=== PATIENT | female | born 1995 | race African-American/Black ===

== ENCOUNTER 2019-03-16 20:27 | Emergency (ER) | payer OTHER ==
[2019-03-16 20:45] VITALS: BP 143/80
--- NOTE | 2019-03-16 20:54 | ED Physician Documentation ---
History of Present Illness - Stated complaint Stated Complaint: R SHOULDER PX - Chief complaint Chief Complaint: Ext Problem - History obtained from History obtained from: Patient - History of Present Illness Timing: Yesterday Pain level now: 5 Improved by: rest Worsened by: movement at wrist - Additonal information Additional information: yesterday morning, patient had gradual onset paresthesias ("pins and needles", per patient) in all five right fingers. Since then, this has progressed to a painful sensation and spread up arm to elbow and now it is all the way from fingertips to right shoulder. Denies injury, denies h/o similar symptoms, denies neck pain. Patient is right-hand dominant. Took 600mg ibuprofen without relief Review of Systems Constitutional: denies: Fever Skin: denies: Rash Musculoskeletal: reports: Extremity pain, Joint pain. denies: Neck pain, Back pain, Extremity swelling, Joint swelling Neurologic: denies: Focal weakness, Numbness PD PAST MEDICAL HISTORY - Past Medical History Cardiovascular: Hypertension - Past Surgical History General: Hiatal hernia repair - Present Medications Home Medications: Ambulatory Orders Medication Instructions Recorded Confirmed Hydrocodone/Acetaminophen 1 - 2 each PO Q6H PRN #14 tablet 03/16/19 [Hydrocodon-Acetaminophen 5-325] - Allergies Allergies/Adverse Reactions: Allergies Allergy/AdvReac Type Severity Reaction Status Date / Time No Known Drug Allergies Allergy Verified 03/16/19 20:33 - Social History Does the pt smoke?: No Smoking Status: Never smoker PD ED PE NORMAL - Vitals Vital signs reviewed: Yes - General General: Alert and oriented X 3, No acute distress, Well developed/nourished - Neck Neck: Supple, no meningeal sign, No bony TTP - Derm Derm: Normal color, Warm and dry, No rash - Extremities Extremities: No deformity, No edema - Neuro Neuro: No motor deficit, No sensory deficit PD ED PE EXPANDED - Extremities Extremities: Sensory intact, Vascular intact, Tendon intact, Other (brisk capillary refill right hand and fingers. normal tactile temperature right hand/fingers. LTS intact RUE to fingertips. FROM all joints RUE although patient says pain is midly exacerbated with right wrist ROM. She has point tenderness right shoulder at AC joint) Results - Vitals Vitals: Vital Signs - 24 hr 03/16/19 20:29 Temperature 36.8 C Heart Rate 94 Respiratory 18 Rate Blood Pressure 143/80 H O2 Saturation 100 Oxygen O2 Source Room air PD MEDICAL DECISION MAKING - ED course Complexity details: considered differential, d/w patient ED course: emergent testing not indicated at this time. Has some elements s/o cervical radiculopathy and others s/o bursitis. Will employ conservative measures at this time (rest, sling, analgesia) and have patient return to ED if worse and follow up with PMD next few days. Departure - Departure Disposition: Home, Self Care Clinical Impression: Pain of upper extremity Qualifiers: Laterality: right Qualified Code(s): M79.601 - Pain in right arm Condition: Good Instructions: ED Bursitis, ED Cervical Radiculopathy, ED Sling Follow-Up: Adriana Martin ARNP [Primary Care Provider] - Within 1 week Prescriptions: Hydrocodone/Acetaminophen [Hydrocodon-Acetaminophen 5-325] 1 - 2 each PO Q6H PRN #14 tablet PRN Reason: pain Forms: Activity restrictions Discharge Date/Time: 03/16/19 21:47
[2019-03-16] MEDS ORDERED: HYDROcod/ACET 5/325 Prepack 4 PO STA (21:22)
== END 2019-03-16 21:47 | disposition home or self-care (01) ==
LOC: ED 20:27
DX: M79.601 Pain in right arm (principal); I10 Essential (primary) hypertension
CPT/HCPCS: 99282; 99284

== ENCOUNTER 2020-10-06 16:58 | Day surgery (SDC) | payer OTHER ==
--- OUTSIDE RECORDS SUMMARY | 2020-10-06 17:11 | EXTERNAL MEDICAL SUMMARY RPT | Continuity of Care Document ---
:1995 Demographics Phone Unavailable Preferred Language Unknown Marital Status Unknown Shinto Affiliation Unknown Race Unknown Ethnic Group Unknown Author Organization [place] Address [address] [phone] Phone Social History date description facility [phone]
[2020-10-06 17:31] LABS: BILIRUBIN,URINE NEGATIVE (NEGATIVE); GLUCOSE, URINE (UA) NEGATIVE (NEGATIVE); KETONES,URINE (UA) NEGATIVE (NEGATIVE); LEUKOCYTE ESTERASE, URINE NEGATIVE (NEGATIVE); NITRITE,URINE NEGATIVE (NEGATIVE); OCCULT BLOOD,URINE TRACE-INTA (NEGATIVE); PH,URINE 7.5 PH (5.0-7.5); PROTEIN,URINE NEGATIVE (NEGATIVE); UROBILINOGEN,URINE 0.2 (NORMAL) E.U./dL (NORMAL)
[2020-10-06 17:35] LABS: CLARITY,URINE CLEAR (CLEAR); HCG UR QUAL NEGATIVE
[2020-10-06 17:38] LABS: BASOPHILS % (AUTO) 0.2 %; EOSINOPHILS # (AUTO) 0.1 10^3/uL (0.0-0.7); EOSINOPHILS % (AUTO) 0.9 %; HCT - HEMATOCRIT 38.7 % (37.0-47.0); HGB - HEMOGLOBIN 12.6 g/dL (12.0-16.0); LYMPHOCYTES # (AUTO) 2.1 10^3/uL (1.5-3.5); MEAN CORPUSCULAR HEMOGLOBIN 24.4 pg (27.0-31.0); MEAN CORPUSCULAR HGB CONC 32.6 g/dL (32.0-36.0); MEAN CORPUSCULAR VOLUME 74.9 fL (81.0-99.0); MEAN PLATELET VOLUME 8.4 fL (7.9-10.8); MONOCYTES % (AUTO) 8.4 %; NEUTROPHILS % (AUTO) 73.3 %; PLT - PLATELET COUNT 261 10^3/uL (130-450); RED BLOOD COUNT 5.17 10^6/uL (4.20-5.40); RED CELL DISTRIBUTION WIDTH 16.6 % (12.0-15.0); WHITE BLOOD COUNT 12.3 x10^3/uL (4.8-10.8)
[2020-10-06 17:48] LABS: ALBUMIN 4.5 g/dL (3.2-5.5); ALBUMIN/GLOBULIN RATIO 1.2 (1.0-2.2); BILIRUBIN,TOTAL 0.4 mg/dL (0.2-1.0); CALCIUM 9.8 mg/dL (8.5-10.3); CREATININE 0.8 mg/dL (0.4-1.0); POTASSIUM 3.9 mmol/L (3.5-5.0); TOTAL PROTEIN 8.2 g/dL (6.7-8.2)
--- NOTE | 2020-10-06 18:32 | ED Physician Documentation ---
History of Present Illness - Stated complaint Stated Complaint: ABD PX - Chief complaint Chief Complaint: Abd Pain - Additonal information Additional information: 24-year-old female presents emergency department for evaluation of acute right lower quadrant pain that began about 6 hours prior to arrival. Sudden onset nonradiating. No nausea vomiting or fevers. Patient reports that she has never had pain like this. Last menstrual period 09/21/2020. She does report a history of ovarian cyst but never having pain with them. No pertinent past surgical history. No pertinent past medical history. Takes no prescribed medications. Review of Systems Constitutional: reports: Reviewed and negative Ears: reports: Reviewed and negative Nose: reports: Reviewed and negative Throat: reports: Reviewed and negative Cardiac: reports: Reviewed and negative Respiratory: reports: Reviewed and negative GI: reports: Abdominal Pain : reports: Reviewed and negative Skin: reports: Reviewed and negative Musculoskeletal: reports: Reviewed and negative Neurologic: reports: Reviewed and negative PD PAST MEDICAL HISTORY - Past Medical History Cardiovascular: Hypertension TEST CONSULTANT: Ovarian cysts, Fibroids - Past Surgical History Past Surgical History: Yes General: Hiatal hernia repair - Present Medications Home Medications: Ambulatory Orders Medication Instructions Recorded Confirmed No Known Home Medications 02/18/20 10/06/20 - Allergies Allergies/Adverse Reactions: Allergies Allergy/AdvReac Type Severity Reaction Status Date / Time No Known Drug Allergies Allergy Verified 10/06/20 17:11 - Social History Does the pt smoke?: No Smoking Status: Never smoker Does the pt drink ETOH?: Yes Does the pt have substance abuse?: No - Immunizations Immunizations are current?: Yes PD ED PE EXPANDED - General General: Alert, No acute distress, Well developed/nourished - Neck Neck: Supple w/out meningeal sx. No: Adenopathy - Cardiac Cardiac: Regular Rate, Radial strong equal, Pedal strong equal, Cap refill < 2 sec - Respiratory Respiratory: Clear to ausultation isaiah. No: Distress, Labored - Abdomen Abdomen: Normal Bowel sounds, Tender to palpation, Rebound, Guarding (Focal tenderness right lower quadrant with rebound. equivocal mcburneys) - Derm Derm: Normal color, Warm and dry Results - Vitals Vitals: Vital Signs - 24 hr 10/06/20 10/06/20 10/06/20 17:11 19:16 19:27 Temperature 36.5 C 36.5 C Heart Rate 100 91 Respiratory 16 16 16 Rate Blood Pressure 135/82 H 131/80 H O2 Saturation 100 99 Oxygen O2 Source Room air - Labs Labs: Laboratory Tests 10/06/20 10/06/20 10/06/20 17:24 17:28 17:28 WBC 12.3 H RBC 5.17 Hgb 12.6 Hct 38.7 MCV 74.9 L MCH 24.4 L MCHC 32.6 RDW 16.6 H Plt Count 261 MPV 8.4 Neut # (Auto) 9.0 H Lymph # (Auto) 2.1 [place] # (Auto) 1.0 Eos # (Auto) 0.1 Baso # (Auto) 0.0 Absolute Nucleated RBC 0.00 Nucleated RBC % 0.0 Sodium 137 Potassium 3.9 Chloride 99 L Carbon Dioxide 28 Anion Gap 10.0 BUN 16 Creatinine 0.8 Estimated GFR (MDRD) 107 Glucose 93 Calcium 9.8 Total Bilirubin 0.4 AST 22 ALT 20 Alkaline Phosphatase 73 Total Protein 8.2 Albumin 4.5 Globulin 3.7 Albumin/Globulin Ratio 1.2 Lipase 22 Urine Color YELLOW Urine Clarity CLEAR Urine pH 7.5 Ur Specific [place] 1.015 Urine Protein NEGATIVE Urine Glucose (UA) NEGATIVE Urine Ketones NEGATIVE Urine Occult Blood TRACE-INTA Urine Nitrite NEGATIVE Urine Bilirubin NEGATIVE Urine Urobilinogen 0.2 (NORMAL) Ur Leukocyte Esterase NEGATIVE Ur Microscopic Review NOT INDICATED Urine Culture Comments NOT INDICATED Urine HCG, Qual NEGATIVE - Rads (name of study) ct ABD Radiology: Discussed with rads (Cute appendicitis with inflammatory changes. No abscess free air or fluid however a small microperforation is not ruled out.) PD MEDICAL DECISION MAKING - ED course Complexity details: reviewed results, re-evaluated patient, d/w patient ED course: 24-year-old female presents emergency department with acute right lower quadrant abdominal pain. Began about 6 hours prior to arrival. She had a positive McBurney's on exam. Screening labs show mild leukocytosis. CT of the abdomen does reveal acute appendicitis with some surrounding inflammatory changes though no abscess formation. Small microperforation is not ruled out. [address] results with Dr. Heide Hare on-call surgeon. Unasyn has been ordered as well as rapid Covid. She plans to take the patient to surgery this evening. Further care to be dictated by the surgical team. Patient made aware of plan and findings Departure - Departure Disposition: ED Transfer to [facility] Clinical Impression: Appendicitis Qualifiers: Appendicitis type: acute appendicitis Acute appendicitis type: with localized peritonitis Appendicitis gangrene presence: without gangrene Appendicitis perforation presence: unspecified whether perforation present Appendicitis abscess presence: without abscess Qualified Code(s): K35.30 - Acute appendicitis with localized peritonitis, without perforation or gangrene
[2020-10-06] MEDS ORDERED: IOPAMIDOL-300 100 ML VIAL ONE (18:43)
[2020-10-06] MEDS ORDERED: diphenhydrAMINE INJ 50 MG/ML VIAL IVP STA (18:55)
--- NOTE | 2020-10-06 19:45 | CT Report ---
PROCEDURE: Abdomen/Pelvis W INDICATIONS: RLQ abd pain CONTRAST: IV CONTRAST: Isovue 300 ml: 100 PO CONTRAST: *NO PO CONTRAST TECHNIQUE: After the administration of intravenous contrast, 5 mm thick sections acquired from the diaphragms to the symphysis. 5 mm thick coronal and sagittal reformats were acquired. For radiation dose reducti on, the following was used: automated exposure control, adjustment of mA and/or kV according to denise ent size. COMPARISON: None. FINDINGS: Image quality: Excellent. ABDOMEN: Lung bases: There is mild dependent atelectasis. Heart size is normal. Solid organs: Evaluation of the liver demonstrates no focal hepatic lesions. Gallbladder appears wit hin normal limits without calcified gallstones. Biliary system is non dilated. The spleen is normal in size. Pancreas enhances normally without peripancreatic fat stranding or fluid collections. No ad renal nodules. Kidneys demonstrate no hydronephrosis. Peritoneum and bowel: The appendix is markedly distended, measuring up to 1.5 cm in diameter with as sociated wall thickening and enhancement and periappendiceal fat stranding. An appendicolith is demon strated in the distal appendiceal lumen. Findings are consistent with acute appendicitis. There is ex tensive associated pericecal inflammatory fat stranding with a small amount of free fluid in the righ t paracolic gutter. No free air or periappendiceal abscess. There is mild enhancement of adjacent loo ps of small bowel in the right lower quadrant. Remaining loops of small and large bowel demonstrate n ormal wall thickness and caliber. There is colonic diverticulosis without acute diverticulitis. Nodes and vessels: There are mildly enlarged mesenteric lymph nodes along the cecum measuring up to 1 cm which are likely reactive. Aorta and inferior vena cava are normal in size. Miscellaneous: No ventral hernias. PELVIS: Genitourinary: Bladder wall thickness is normal. The ovaries are enlarged in appearance bilaterally measuring up to 5.2 cm on the right and approximately 4.4 cm on the left. A peripherally enhancing cy st is demonstrated within the left ovary likely representing a corpus luteal cyst. There is a small e xophytic left fibroid along the uterine fundus. Miscellaneous: No inguinal hernias or adenopathy. Bones: No suspicious bony lesions. No vertebral body compression fractures. IMPRESSION: 1. Findings consistent with acute appendicitis. Extensive inflammatory changes in the right lower franca drant is consistent with an associated peritonitis. A small perforation cannot be excluded but no abs cess collection or free air is visualized. Findings discussed with Gayle Conroy on 10/06/2020 at 7:35 PM. 2. Nonspecific bilateral enlargement of the ovaries. Further evaluation may be obtained with pelvic u ltrasound if clinically indicated. 3. Colonic diverticulosis without acute diverticulitis. Reviewed by: Franklin Merrill MD on 10/06/2020 7:43 PM PDT Approved by: Franklin Merrill MD on 10/06/2020 7:43 PM PDT Station ID: [id number]
[2020-10-06] MEDS ORDERED: AMPICILLIN/SULBACTAM 3 GM in SODIUM CHLORIDE 0.9% MINIBAG 100 ML IV STA (19:46)
[2020-10-06] MEDS ORDERED: IOPAMIDOL-300 100 ML VIAL IVP ONE (19:48)
--- OUTSIDE RECORDS SUMMARY | 2020-10-06 20:39 | EXTERNAL MEDICAL SUMMARY RPT | Continuity of Care Document ---
:1995 Demographics Phone Unavailable Preferred Language Unknown Marital Status Unknown Lutheran Affiliation Unknown Race Unknown Ethnic Group Unknown Author Organization [place] Address [address] [place] [address] Phone Social History date description facility [phone]
[2020-10-06] MEDS ORDERED: LIDOCAINE 2%-EPI 1:100000 20 ML MDV ONE (20:40)
[2020-10-06] MEDS ORDERED: BUPIVACAINE 0.5% PF 30 ML VIAL ONE (20:40)
[2020-10-06] MEDS ORDERED: LIDOCAINE 2%-EPI 1:100000 20 ML MDV SUBQ ONE ×2 (20:42→22:00)
[2020-10-06] MEDS ORDERED: BUPIVACAINE 0.5% PF 30 ML VIAL INFIL ONE ×2 (20:43→22:00)
--- NOTE | 2020-10-06 20:43 | HISTORY & PHYSICAL EXAMINATION ---
HPI - Admitted From Admitted from: ED - History Obtained From History obtained from: Patient Exam limitations: No limitations - History of Present Illness Severity at the worst: reports: Moderate Pain Quality: reports: Aching, Cramping Context-Pain started w/: reports: Rest Timing: reports: Gradual onset Duration: reports: Hours: (6) HPI Comment/Other: 24-year-old female presents emergency department for evaluation of acute right lower quadrant pain that began about 6 hours prior to arrival. Sudden onset nonradiating. No nausea vomiting or fevers. Patient reports that she has never had pain like this. Last menstrual period 09/21/2020. She does report a history of ovarian cyst but never having pain with them. No pertinent past surgical history. No pertinent past medical history. Takes no prescribed medications. PMH/PSH - Past Medical History Cardiovascular: positive: Hypertension PAINTING DEPARTMENT SUPERVISOR: positive: Ovarian cysts, Fibroids - Past Surgical History General: positive: Hiatal hernia repair Social & Family Hx - Social History Does the pt smoke?: No Smoking Status: Never smoker Does the pt drink ETOH?: Yes Does the pt have substance abuse?: No Meds/Allgy - Home Medications Home Medications: Ambulatory Orders Medication Instructions Recorded Confirmed No Known Home Medications 02/18/20 10/06/20 - Allergies Allergies/Adverse Reactions: Allergies Allergy/AdvReac Type Severity Reaction Status Date / Time No Known Drug Allergies Allergy Verified 10/06/20 17:11 Review of Systems - Gastrointestinal Gastrointestinal: reports: Abdominal pain, Constipation - All Other Systems All Other Systems: reports: Reviewed and negative Exam - Vital Signs Vital Signs: Vital Signs x48h Temp Pulse Resp BP Pulse Ox 10/06/20 19:27 16 10/06/20 19:16 36.5 C 91 16 131/80 H 99 10/06/20 17:11 36.5 C 100 16 135/82 H 100 - Physical Exam General Appearance: positive: No acute distress, Alert Eyes Bilateral: positive: Normal inspection, PERRL, EOMI ENT: positive: ENT inspection nml, Pharynx nml, No signs of dehydration Neck: positive: Nml inspection, Thyroid nml, No JVD Respiratory: positive: Chest non-tender, No respiratory distress, Breath sounds nml Cardiovascular: positive: Regular rate & rhythm Peripheral Pulses: positive: 1+ Abdomen: positive: Nml bowel sounds, Tenderness, Guarding, Rebound Back: negative: CVA tenderness (R), CVA tenderness (L) Results - Lab Results Fish Bones: 10/06/20 17:28 10/06/20 17:28 Other Lab Results: Lab Results x24hrs 10/06/20 10/06/20 10/06/20 Range/Units 17:28 17:28 17:24 WBC 12.3 H (4.8-10.8) x10^3/uL RBC 5.17 (4.20-5.40) 10^6/uL Hgb 12.6 (12.0-16.0) g/dL Hct 38.7 (37.0-47.0) % MCV 74.9 L (81.0-99.0) fL MCH 24.4 L (27.0-31.0) pg MCHC 32.6 (32.0-36.0) g/dL RDW 16.6 H (12.0-15.0) % Plt Count 261 (130-450) 10^3/uL MPV 8.4 (7.9-10.8) fL Neut # (Auto) 9.0 H (1.5-6.6) 10^3/uL Lymph # (Auto) 2.1 (1.5-3.5) 10^3/uL [place] # (Auto) 1.0 (0.0-1.0) 10^3/uL Eos # (Auto) 0.1 (0.0-0.7) 10^3/uL Baso # (Auto) 0.0 (0.0-0.1) 10^3/uL Absolute Nucleated RBC 0.00 x10^3/uL Nucleated RBC % 0.0 /100WBC Sodium 137 (135-145) mmol/L Potassium 3.9 (3.5-5.0) mmol/L Chloride 99 L (101-111) mmol/L Carbon Dioxide 28 (21-32) mmol/L Anion Gap 10.0 (6-13) BUN 16 (6-20) mg/dL Creatinine 0.8 (0.4-1.0) mg/dL Estimated GFR (MDRD) 107 (>89) Glucose 93 (70-100) mg/dL Calcium 9.8 (8.5-10.3) mg/dL Total Bilirubin 0.4 (0.2-1.0) mg/dL AST 22 (10-42) IU/L ALT 20 (10-60) IU/L Alkaline Phosphatase 73 (42-121) IU/L Total Protein 8.2 (6.7-8.2) g/dL Albumin 4.5 (3.2-5.5) g/dL Globulin 3.7 (2.1-4.2) g/dL Albumin/Globulin Ratio 1.2 (1.0-2.2) Lipase 22 (22-51) U/L Urine Color YELLOW Urine Clarity CLEAR (CLEAR) Urine pH 7.5 (5.0-7.5) PH Ur Specific [place] 1.015 (1.002-1.030) Urine Protein NEGATIVE (NEGATIVE) mg/dL Urine Glucose (UA) NEGATIVE (NEGATIVE) mg/dL Urine Ketones NEGATIVE (NEGATIVE) mg/dL Urine Occult Blood TRACE-INTA (NEGATIVE) Urine Nitrite NEGATIVE (NEGATIVE) Urine Bilirubin NEGATIVE (NEGATIVE) Urine Urobilinogen 0.2 (NORMAL) (NORMAL) E.U./dL Ur Leukocyte Esterase NEGATIVE (NEGATIVE) Ur Microscopic Review NOT INDICATED Urine Culture Comments NOT INDICATED Urine HCG, Qual NEGATIVE - Diagnostic Imaging Results Diagnostic Imaging Results: positive: Prelim report reviewed, Final report reviewed Diagnostic Imaging Results Comments: Consistent with acute appendicitis - EKG Results EKG Interpreted Independently: No Impression/Plan - Problem List Problem List: We have discussed the risks and benefits of laparoscopy with appendectomy and the patient has expressed a desire to proceed.
[2020-10-06 20:51] LABS: B. PARAPERTUSSIS- RESP PCR PAN NOT DETECTED; B. PERTUSSIS- RESP PCR PANEL NOT DETECTED; C. PNEUMONIAE- RESP PCR PANEL NOT DETECTED; CORONAVIRUS 229E-RESP PCR NOT DETECTED; CORONAVIRUS HKU1-RESP PCR NOT DETECTED; CORONAVIRUS NL63-RESP PCR NOT DETECTED; CORONAVIRUS OC43-RESP PCR NOT DETECTED; HUMAN METAPNEUMOVIRUS NOT DETECTED; INFLUENZA A- RESP PCR PANEL NOT DETECTED; INFLUENZA B - RESP PCR PANEL NOT DETECTED; M. PNEUMONIAE- RESP PCR PANEL NOT DETECTED; PARAINFLUENZA VIRUS 1 NOT DETECTED; PARAINFLUENZA VIRUS 2 NOT DETECTED; PARAINFLUENZA VIRUS 3 NOT DETECTED; PARAINFLUENZA VIRUS 4 NOT DETECTED; RHINOVIRUS/ENTEROVIRUS NOT DETECTED; RSV- RESP PCR PANEL NOT DETECTED; SARS-CoV-2 -RESP PCR PANEL NOT DETECTED
[2020-10-06] MEDS ORDERED: MIDAZOLAM 2 MG/2 ML VIAL ONE (20:58)
[2020-10-06] MEDS ORDERED: fentaNYL 100 MCG/2 ML VIAL ONE (20:58)
[2020-10-06] MEDS ORDERED: LIDOCAINE-MPF 2% 5 ML VIAL ONE (20:59)
[2020-10-06] MEDS ORDERED: SUCCINYLCHOLINE 200 MG/10 ML VIAL ONE (20:59)
[2020-10-06] MEDS ORDERED: KETOROLAC 30 MG/ML VIAL ONE (20:59)
[2020-10-06] MEDS ORDERED: ONDANSETRON 4 MG/2 ML VIAL ONE (20:59)
[2020-10-06] MEDS ORDERED: PROPOFOL 200 MG/20 ML VIAL IVP ONE (20:59)
[2020-10-06] MEDS ORDERED: DEXAMETHASONE 4 MG/ML VIAL ONE (20:59)
[2020-10-06] MEDS ORDERED: ROCURONIUM 50 MG/5 ML VIAL ONE (20:59)
[2020-10-06] MEDS ORDERED: fentaNYL 100 MCG/2 ML VIAL IVP PRN (21:04)
[2020-10-06] MEDS ORDERED: HYDROmorphone 0.5 MG/0.5 ML SYRINGE IVP PRN (21:04)
[2020-10-06] MEDS ORDERED: ONDANSETRON 4 MG/2 ML VIAL IVP PRN ×2 (21:04→22:15)
[2020-10-06] MEDS ORDERED: MORPHINE 2 MG/ML CARPUJECT IVP PRN (21:04)
[2020-10-06] MEDS ORDERED: NALOXONE 0.4 MG/ML VIAL IVP PRN (21:04)
[2020-10-06] MEDS ORDERED: METOCLOPRAMIDE 10 MG/2 ML VIAL IVP PRN (21:04)
[2020-10-06] MEDS ORDERED: ePHEDrine 50 MG/ML VIAL IVP PRN (21:04)
[2020-10-06] MEDS ORDERED: ATROPINE ABBOJECT 1 MG/10 ML SYRINGE IVP PRN (21:04)
--- NOTE | 2020-10-06 21:04 | ANESTHESIA ---
Pre-Anesthesia VS, & Labs - Diagnosis appendecitis - Procedure laparoscopic appendectomy Vital Signs: Temp Pulse Resp BP Pulse Ox 36.5 C 91 16 131/80 H 99 10/06/20 19:16 10/06/20 19:16 10/06/20 19:27 10/06/20 19:16 10/06/20 19:16 Height: 5 ft 2 in Weight (kg): 81.7 kg Body Mass Index: 32.9 BMI Classification: Obese - NPO Other (1600 donuts and chips) - Is Patient ?: No - Lab Results Current Lab Results: Laboratory Tests 10/06/20 17:28: Sodium 137, Potassium 3.9, Chloride 99 L, Carbon Dioxide 28, Anion Gap 10.0, BUN 16, Creatinine 0.8, Estimated GFR (MDRD) 107, Glucose 93, Calcium 9.8, Total Bilirubin 0.4, AST 22, ALT 20, Alkaline Phosphatase 73, Total Protein 8.2, Albumin 4.5, Globulin 3.7, Albumin/Globulin Ratio 1.2, Lipase 22 10/06/20 17:28: WBC 12.3 H, RBC 5.17, Hgb 12.6, Hct 38.7, MCV 74.9 L, MCH 24.4 L , MCHC 32.6, RDW 16.6 H, Plt Count 261, MPV 8.4, Neut # (Auto) 9.0 H, Lymph # (Auto) 2.1, [place] # (Auto) 1.0, Eos # (Auto) 0.1, Baso # (Auto) 0.0, Absolute Nucleated RBC 0.00, Nucleated RBC % 0.0 Lab results reviewed: Yes Fish Bones: 10/06/20 17:28 10/06/20 17:28 Home Medications and Allergies No Known Home Medications 02/18/20 Allergies/Adverse Reactions: Allergies Allergy/AdvReac Type Severity Reaction Status Date / Time No Known Drug Allergies Allergy Verified 10/06/20 17:11 Anes History & Medical History - Anesthetic History Anesthesia Complications: reports: No previous complications Family history of Anesthesia Complications: Denies Family history of Malignant Hyperthermia: Denies - Medical History Cardiovascular: reports: Hypertension Smoking Status: Never smoker - Surgical History General: reports: Hiatal hernia repair Exam General: Alert, Oriented x3, Cooperative, No acute distress Dental: WNL Mouth Openin Fingerbreadth Neck Mobility: Normal Mallampati classification: I Respiratory: Lungs clear, Normal breath sounds, No respiratory distress, No accessory muscle use Cardiovascular: Regular rate, Normal S1, Normal S2, No murmurs Plan Anesthesia Type: General Consent for Procedure(s) Verified and Reviewed: Yes Code Status: Attempt Resuscitation ASA classification: 2-Mild systemic disease Is this case an emergency?: Yes
[2020-10-06] MEDS ORDERED: LACTATED RINGERS 1,000 ML IV SCH (22:00)
--- NOTE | 2020-10-06 22:13 | OPERATIVE REPORT ---
Operative Report - General Procedure Date: 10/06/20 Planned Procedure: Laparoscopy with appendectomy Pre-Op Diagnosis: Acute appendicitis Procedure Performed: Laparoscopy with appendectomy Post Op Diagnosis: Acute appendicitis without evidence of perforation - Procedure Note Primary Surgeon: Payam Anesthesia Provider: MACI Mast Anesthesia Technique: General ET tube Pathology: Appendix to pathology in formalin Estimated Blood Loss (mL): 10 Findings: 1.Acute appendicitis with right lower quadrant phlegmon. 2. Multiple ovarian cysts Complications: None apparent - Other Other Information/Narrative: After obtaining informed consent, the patient is brought to the operating room and placed in the supine position on the operating table. Following successful induction of general endotracheal anesthesia, appropriate padding of all bony prominences, and placement of appropriate monitors, the abdomen was prepped and draped in the standard surgical fashion. A timeout was held per scope protocol. All elements of the surgical safety checklist were followed before, during, and after the procedure. Following infiltration with local anesthetic to create a field block, an inc ision was created inferior to the umbilicus and carried down through the skin and subcutaneous tissue to reveal the fascia below. 2-0 Vicryl retention sutures were placed on either side of the midline and the abdomen was entered under direct vision using a 15 blade scalpel. A 10 mm blunt Goodson balloon trocar was placed in the abdominal cavity and it was insufflated to 15 mmHg pressure. The patient was placed in Trendelenburg position with the left side rotated toward the floor. The camera was placed in the abdominal cavity and we immediately visualized the cecum in the right lower quadrant. It was rotated medially to reveal a grossly abnormal thickened edematous appendix without obvious perforation. The appendix was grasped and elevated revealing its attachment to the cecum. A window was created in the mesoappendix at this location. A laparoscopic stapling device was used to ligate the appendix and liberated from its attachment to the cecum. An additional load of the device w ere used to divide its mesentery.The appendix was placed in an Endo Catch bag and removed via the umbilical port with a camera in the epigastric position. The camera was replaced in the operative site examined. It was irrigated with warm saline solution and aspirated free of all fluid and particulate matter. The table was flattened and the abdomen evaluated once again. The trochars were removed under direct vision and abdomen was desufflated. The umbilical incision was closed with interrupted Vicryl suture and Monocryl stitches were placed in the skin. All sponge, needles, and instrument counts were correct at the conclusion of the case. The patient was allowed to wake from anesthesia without difficulty and taken to the postanesthesia care unit in good condition.
[2020-10-06] MEDS ORDERED: ACETAMINOPHEN 325 MG TABLET PO PRN (22:15)
[2020-10-06] MEDS ORDERED: LACTATED RINGERS 1,000 ML IV ONE ×2 (22:32→23:22)
--- NOTE | 2020-10-06 22:36 | ANESTHESIA POST OP EVALUATION ---
Anesthesia Post Eval - Post Anesthesia Eval Vitals: Last Vital Signs Temp 36.5 C 10/06/20 19:16 Pulse 91 10/06/20 19:16 Resp 16 10/06/20 19:27 BP 131/80 H 10/06/20 19:16 Pulse Ox 99 10/06/20 19:16 CV Function Including HR & BP: Stable Pain Control: Satisfactory Nausea & Vomiting: Negative Mental Status: Baseline Respiratory Status: Airway Patent Hydration Status: Satisfactory Anesthesia Complications: None
[2020-10-07] MEDS: IBUPROFEN 600 MG TABLET PO PRN ×2 (00:33→07:37)
[2020-10-07] MEDS: oxyCODONE 5 MG TABLET PO PRN ×2 (01:00→07:37)
[2020-10-07] MEDS ORDERED: AMPICILLIN/SULBACTAM 3 GM in SODIUM CHLORIDE 0.9% MINIBAG 100 ML IV SCH ×2 (01:30→07:30)
[2020-10-07 07:56] VITALS: BP 124/63
== END 2020-10-07 09:40 | disposition home or self-care (01) ==
LOC: ED 16:58 → SDS 20:31 → MS3 23:08 → SDS 10-07 09:40
PROVIDERS: ATTEND Surgery
PROC: 0DTJ4ZZ Resection of Appendix, Percutaneous Endoscopic Approach (ICD-10-PCS; principal; 2020-10-06 20:30)
DX: K35.30 Acute appendicitis with localized peritonitis, without perforation or gangrene (principal); Z20.822 Contact with and (suspected) exposure to COVID-19
CPT/HCPCS: 0202U; 36415; 44970; 74177; 80053; 81003; 81025; 83690; 85025; 96365; 96375; 99284; 99285; A9270; J0330; J1200; J7120; Q9967; 81001; 87086

== ENCOUNTER 2020-10-20 20:53 | Inpatient (IN) | payer OTHER ==
--- OUTSIDE RECORDS SUMMARY | 2020-10-20 20:57 | EXTERNAL MEDICAL SUMMARY RPT | Continuity of Care Document ---
:1995 Demographics Phone Unavailable Preferred Language Unknown Marital Status Unknown Worship Affiliation Unknown Race Unknown Ethnic Group Unknown Author Organization [place] Address [address] [phone] Phone Social History date description facility [phone]
--- OUTSIDE RECORDS SUMMARY | 2020-10-20 20:59 | EXTERNAL MEDICAL SUMMARY RPT | Continuity of Care Document ---
:1995 Demographics Phone Unavailable Preferred Language Unknown Marital Status Unknown Hinduism Affiliation Unknown Race Unknown Ethnic Group Unknown Author Organization [place] Address [address] [phone] Phone Social History date description facility [phone]
[2020-10-20] MEDS ORDERED: SODIUM CHLORIDE 0.9% 1,000 ML IV STA (21:29)
--- NOTE | 2020-10-20 21:34 | ED Physician Documentation ---
PD HPI FEVER - Stated complaint Stated Complaint: POST OP FEVER - Chief complaint Chief Complaint: Abd Pain - History obtained from History obtained from: Patient - History of Present Illness Timing - onset: Today Timing details: Abrupt onset Pain level now: 6 Associated symptoms: Chills, Dyspnea, Abdominal pain. No: Sore throat, Dry cough, Productive cough, Hemoptysis, Chest pain, NVD, Urinary symptoms, Rash/skin lesion Recently seen: Surgery (appendectomy 10/06) - Additional information Additional information: patient underwent appendectomy 10/06. Her description of her post-operative course sounds unremarkable and includes a subsequent trip to [place]. Patient says that 2 days ago she developed pain at the midline incision site (she indicates that this was a site of a previous umbilical hernia surgery and thus same area was used for the appendectomy). She was seen in the office by the surgeon yesterday and strict bed rest was ordered and she was told to come to ED should she develop any further concerning signs/symptoms such as fever. Tonight she had shaking chills and took her temperature with result of 102.7; this was approximately 6 PM. 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 Review of Systems Constitutional: reports: Fever, Chills, Fatigue Eyes: reports: Reviewed and negative Ears: reports: Reviewed and negative Nose: reports: Reviewed and negative Throat: reports: Reviewed and negative Cardiac: reports: Reviewed and negative Respiratory: reports: Dyspnea (she says "I get winded sometimes" with ambulation). denies: Cough, Hemoptysis GI: reports: Abdominal Pain. denies: Abdominal Swelling, Nausea, Vomiting, Constipation, Diarrhea, Hematemesis, Bloody / black stool : denies: Dysuria, Frequency Skin: reports: Reviewed and negative Musculoskeletal: reports: Reviewed and negative Neurologic: reports: Reviewed and negative PD PAST MEDICAL HISTORY - Past Medical History Cardiovascular: Hypertension [employer] WORK[employer]: Ovarian cysts, Fibroids - Past Surgical History Past Surgical History: Yes General: Hiatal hernia repair - Present Medications Home Medications: Ambulatory Orders Medication Instructions Recorded Confirmed Ondansetron Odt [Zofran Odt] 4 mg TL Q6H PRN #10 tablet 10/06/20 oxyCODONE [Roxicodone] 5 mg PO Q4H PRN #14 tablet 10/06/20 Acetaminophen [8 Hour Pain Relief] 650 mg PO Q6HR PRN #60 tab 10/07/20 Ibuprofen [Motrin] 600 mg PO Q6H PRN #30 tab 10/07/20 - Allergies Allergies/Adverse Reactions: Allergies Allergy/AdvReac Type Severity Reaction Status Date / Time No Known Drug Allergies Allergy Verified 10/20/20 21:23 - Social History Does the pt smoke?: No Smoking Status: Never smoker Does the pt drink ETOH?: Yes Does the pt have substance abuse?: No - Immunizations Immunizations are current?: Yes PD ED PE NORMAL - Vitals Vital signs reviewed: Yes - General General: Alert and oriented X 3, No acute distress, Well developed/nourished - HEENT HEENT: Moist mucous membranes - Neck Neck: Supple, no meningeal sign - Cardiac Cardiac: No murmur - Respiratory Respiratory: No respiratory distress, Clear bilaterally - Abdomen Abdomen: Soft, Non distended, Other (midline (immediately inferior to umbilicus) incision with sutures in place, edges are approximated. there is no erythema or fluctuance. There is TTP RLQ and periumbilical) - Back Back: No CVA TTP - Derm Derm: Normal color, Warm and dry - Extremities Extremities: No edema - Neuro Neuro: Alert and oriented X 3 PD ED PE EXPANDED - Cardiac Cardiac: Tachy, Regular Rhythm Results - Vitals Vitals: Vital Signs - 24 hr 10/20/20 10/20/20 10/20/20 21:16 22:45 23:47 Temperature 38.2 C H 37.9 C Heart Rate 150 H 128 H 139 H Respiratory 14 17 23 Rate Blood Pressure 133/77 H 130/87 H 140/79 H O2 Saturation 100 100 99 10/21/20 10/21/20 10/21/20 00:29 00:30 00:41 Temperature 37.9 C Heart Rate 130 H 130 H 130 H Respiratory 16 16 Rate Blood Pressure 129/89 H 129/89 H 129/89 H O2 Saturation 98 100 100 Oxygen O2 Source Room air - Labs Labs: Laboratory Tests 10/20/20 10/20/20 10/20/20 21:32 21:32 21:39 WBC 19.0 H RBC 4.65 Hgb 10.9 L Hct 33.0 L MCV 71.0 L MCH 23.4 L MCHC 33.0 RDW 16.6 H Plt Count 345 MPV 8.3 Neut # (Auto) Not Reportable Lymph # (Auto) Not Reportable Lares # (Auto) Not Reportable Eos # (Auto) Not Reportable Baso # (Auto) Not Reportable Absolute Nucleated RBC Not Reportable Total Counted 100 Band Neuts % (Manual) 1 Abnorm Lymph % (Manual) 0 Nucleated RBC % Not Reportable Neutrophils # (Manual) 15.0 H Lymphocytes # (Manual) 2.3 Monocytes # (Manual) 1.7 H Eosinophils # (Manual) 0.0 Basophils # (Manual) 0.0 Differential Comment MANUAL DIFFERENTIAL WBC Morphology 1+ TOXIC GRANULATION Platelet Estimate NORMAL (130-450,000) Platelet Morphology NORMAL APPEARANCE RBC Morph Micro Appear 2+ MICROCYTOSIS Sodium Potassium Chloride Carbon Dioxide Anion Gap BUN Creatinine Estimated GFR (MDRD) Glucose Lactic Acid Calcium Total Bilirubin AST ALT Alkaline Phosphatase Total Protein Albumin Globulin Albumin/Globulin Ratio Urine Color YELLOW Urine Clarity CLEAR Urine pH 7.0 Ur Specific [place] <=1.005 Urine Protein NEGATIVE Urine Glucose (UA) NEGATIVE Urine Ketones NEGATIVE Urine Occult Blood LARGE H Urine Nitrite NEGATIVE Urine Bilirubin NEGATIVE Urine Urobilinogen 0.2 (NORMAL) Ur Leukocyte Esterase NEGATIVE Urine RBC 6-10 H Urine WBC 0-3 Ur Squamous Epith Cells MANY Squamous H Urine Bacteria Rare Urine Sperm PRESENT Urine Culture Comments NOT INDICATED Urine HCG, Qual NEGATIVE Nasal Adenovirus (PCR) Nasal B. parapertussis DNA (PCR) Nasal Coronavir 229E PCR Nasal Coronavir HKU1 PCR Nasal Coronavir NL63 PCR Nasal Coronavir OC43 PCR Nasal Enterovir/Rhinovir PCR Nasal Influenza B PCR Nasal Influenza A PCR Nasal Parainfluen 1 PCR Nasal Parainfluen 2 PCR Nasal Parainfluen 3 PCR Nasal Parainfluen 4 PCR Nasal RSV (PCR) Nasal B.pertussis DNA PCR Nasal C.pneumoniae (PCR) Steven Human Metapneumo PCR Nasal M.pneumoniae (PCR) Nasal SARS-CoV-2 (PCR) 10/20/20 10/20/20 10/20/20 21:39 21:45 23:25 WBC RBC Hgb Hct MCV MCH MCHC RDW Plt Count MPV Neut # (Auto) Lymph # (Auto) Lares # (Auto) Eos # (Auto) Baso # (Auto) Absolute Nucleated RBC Total Counted Band Neuts % (Manual) Abnorm Lymph % (Manual) Nucleated RBC % Neutrophils # (Manual) Lymphocytes # (Manual) Monocytes # (Manual) Eosinophils # (Manual) Basophils # (Manual) Differential Comment WBC Morphology Platelet Estimate Platelet Morphology RBC Morph Micro Appear Sodium 133 L Potassium 3.3 L Chloride 97 L Carbon Dioxide 25 Anion Gap 11.0 BUN 6 Creatinine 0.6 Estimated GFR (MDRD) 148 Glucose 119 H Lactic Acid 1.1 Calcium 8.9 Total Bilirubin 0.5 AST 36 ALT 42 Alkaline Phosphatase 131 H Total Protein 8.3 H Albumin 3.3 Globulin 5.0 H Albumin/Globulin Ratio 0.7 L Urine Color Urine Clarity Urine pH Ur Specific [place] Urine Protein Urine Glucose (UA) Urine Ketones Urine Occult Blood Urine Nitrite Urine Bilirubin Urine Urobilinogen Ur Leukocyte Esterase Urine RBC Urine WBC Ur Squamous Epith Cells Urine Bacteria Urine Sperm Urine Culture Comments Urine HCG, Qual Nasal Adenovirus (PCR) NOT DETECTED Nasal B. parapertussis DNA (PCR) NOT DETECTED Nasal Coronavir 229E PCR NOT DETECTED Nasal Coronavir HKU1 PCR NOT DETECTED Nasal Coronavir NL63 PCR NOT DETECTED Nasal Coronavir OC43 PCR NOT DETECTED Nasal Enterovir/Rhinovir PCR NOT DETECTED Nasal Influenza B PCR NOT DETECTED Nasal Influenza A PCR NOT DETECTED Nasal Parainfluen 1 PCR NOT DETECTED Nasal Parainfluen 2 PCR NOT DETECTED Nasal Parainfluen 3 PCR NOT DETECTED Nasal Parainfluen 4 PCR NOT DETECTED Nasal RSV (PCR) NOT DETECTED Nasal B.pertussis DNA PCR NOT DETECTED Nasal C.pneumoniae (PCR) NOT DETECTED Steven Human Metapneumo PCR NOT DETECTED Nasal M.pneumoniae (PCR) NOT DETECTED Nasal SARS-CoV-2 (PCR) NOT DETECTED - Rads (name of study) CT A/P with IV contrast Radiology: Prelim report reviewed, See rad report CT chest angio Radiology: Prelim report reviewed, See rad report PD MEDICAL DECISION MAKING - ED course Complexity details: reviewed old records, reviewed results, re-evaluated patient, considered differential, d/w patient ED course: On reevaluation after tests resulted and IV fluids, toradol, and morphine given, patient reports significant improvement. She has significant tachycardia and leukocytosis. Lactate is 1.1. CT A/P interpreted by radiologist as "1. enlarged ovaries appearing physiologic. left ovary is larger compared to previous 2. 2.5 x 2.2 cm medium density structure adjacent to the left uterine cornua and left ovary" that "was present previously, unchanged in size with a similar differential". Most concerning on CT is "3. Ill-defined low-density lesion within segment 7 of the liver. this liver lesion is new compared to previous and could reflect liver abscess given the history of appendicitis". I discussed these findings with Dr. Diaz, will admit to his service, recommends zosyn (this is given in ED). Departure - Departure Disposition: [facility] DC/Xfer Clinical Impression: Postoperative fever Sepsis Qualifiers: Sepsis type: sepsis due to unspecified organism Sepsis acute organ dysfunction status: without acute organ dysfunction Qualified Code(s): A41.9 - Sepsis, unspecified organism Condition: Stable Discharge Date/Time: 10/21/20 01:25
[2020-10-20] MEDS ORDERED: MORPHINE 2 MG/ML CARPUJECT IVP STA (21:47)
[2020-10-20] MEDS ORDERED: KETOROLAC 30 MG/ML VIAL IVP STA (21:47)
[2020-10-20 21:51] LABS: BASOPHILS % (AUTO) 0.2 %; EOSINOPHILS % (AUTO) 0.5 %; HGB - HEMOGLOBIN 10.9 g/dL (12.0-16.0); LYMPHOCYTES % (AUTO) 11.8 %; MEAN CORPUSCULAR HEMOGLOBIN 23.4 pg (27.0-31.0); MEAN PLATELET VOLUME 8.3 fL (7.9-10.8); MONOCYTES % (AUTO) 9.4 %; NEUTROPHILS % (AUTO) 76.7 %; PLT - PLATELET COUNT 345 10^3/uL (130-450); RED BLOOD COUNT 4.65 10^6/uL (4.20-5.40); RED CELL DISTRIBUTION WIDTH 16.6 % (12.0-15.0)
[2020-10-20 21:53] LABS: ABNORMAL LYMPHS % (MANUAL) 0 %
[2020-10-20] MEDS ORDERED: IOPAMIDOL-300 100 ML VIAL ONE (21:57)
[2020-10-20 22:02] LABS: BILIRUBIN,URINE NEGATIVE (NEGATIVE); GLUCOSE, URINE (UA) NEGATIVE (NEGATIVE); HCG UR QUAL NEGATIVE; KETONES,URINE (UA) NEGATIVE (NEGATIVE); LEUKOCYTE ESTERASE, URINE NEGATIVE (NEGATIVE); NITRITE,URINE NEGATIVE (NEGATIVE); OCCULT BLOOD,URINE LARGE (NEGATIVE); PROTEIN,URINE NEGATIVE (NEGATIVE); UROBILINOGEN,URINE 0.2 (NORMAL) E.U./dL (NORMAL)
[2020-10-20 22:03] LABS: CLARITY,URINE CLEAR (CLEAR)
[2020-10-20 22:05] LABS: ALBUMIN 3.3 g/dL (3.2-5.5); ALBUMIN/GLOBULIN RATIO 0.7 (1.0-2.2); BILIRUBIN,TOTAL 0.5 mg/dL (0.2-1.0); CALCIUM 8.9 mg/dL (8.5-10.3); CREATININE 0.6 mg/dL (0.4-1.0); POTASSIUM 3.3 mmol/L (3.5-5.0); TOTAL PROTEIN 8.3 g/dL (6.7-8.2)
[2020-10-20 22:07] LABS: BACTERIA,URINE Rare /HPF (None Seen); SPERM,URINE PRESENT; SQUAMOUS EPITHELIAL CELL,UR MANY Squamous (<= Few); WBC,URINE 0-3 /HPF (0-5)
[2020-10-20 22:13] LABS: BAND NEUTROPHILS % (MANUAL) 1 %; LYMPHOCYTES # (MANUAL) 2.3 10^3/uL (1.5-3.5); LYMPHOCYTES % (MANUAL) 12 %; MONOCYTES # (MANUAL) 1.7 10^3/uL (0.0-1.0)
[2020-10-20 22:16] LABS: PLATELET ESTIMATE, MANUAL NORMAL (130-450,000) (NORMAL); PLATELET MORPHOLOGY NORMAL APPEARANCE (NORMAL); WBC MORPHOLOGY (MULTIPLE) 1+ TOXIC GRANULATION (NORMAL)
[2020-10-20 22:17] LABS: DIFFERENTIAL COMMENT MANUAL DIFFERENTIAL
[2020-10-20] MEDS ORDERED: IOPAMIDOL-300 100 ML VIAL IVP ONE (22:56)
[2020-10-21] MEDS ORDERED: PIPERACILLIN/TAZOBACTAM 3.375 GM in SODIUM CHLORIDE 0.9% MINIBAG 100 ML IV STA (00:03)
[2020-10-21 00:15] LABS: CORONAVIRUS 229E-RESP PCR NOT DETECTED; CORONAVIRUS HKU1-RESP PCR NOT DETECTED; CORONAVIRUS NL63-RESP PCR NOT DETECTED; CORONAVIRUS OC43-RESP PCR NOT DETECTED; HUMAN METAPNEUMOVIRUS NOT DETECTED; INFLUENZA A- RESP PCR PANEL NOT DETECTED; RHINOVIRUS/ENTEROVIRUS NOT DETECTED; SARS-CoV-2 -RESP PCR PANEL NOT DETECTED
[2020-10-21 00:16] LABS: B. PARAPERTUSSIS- RESP PCR PAN NOT DETECTED; B. PERTUSSIS- RESP PCR PANEL NOT DETECTED; C. PNEUMONIAE- RESP PCR PANEL NOT DETECTED; INFLUENZA B - RESP PCR PANEL NOT DETECTED; M. PNEUMONIAE- RESP PCR PANEL NOT DETECTED; PARAINFLUENZA VIRUS 1 NOT DETECTED; PARAINFLUENZA VIRUS 2 NOT DETECTED; PARAINFLUENZA VIRUS 3 NOT DETECTED; PARAINFLUENZA VIRUS 4 NOT DETECTED; RSV- RESP PCR PANEL NOT DETECTED
--- NOTE | 2020-10-21 00:42 | SURGERY HX AND PHYSICAL(T) ---
Surgical History & Physical - Chief Complaint/HPI Chief Complaint: Post-operative fever & abdominal pain History of Present Illness: 25-year-old female presenting for postoperative fever and abdominal pain. History of recent appendectomy for acute appendicitis. Patient is postoperative day #15. No perforation. Recent travel. CT reveals hepatic lesion. CT angio of the chest was negative for pulmonary embolism as well as viral panel for Covid or other acute illness. Patient with associated febrile episode as well. 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 [employer]: Ovarian cysts, Fibroids General: Hiatal hernia repair Smoking Status: Never smoker Does the pt drink ETOH?: Yes Frequency: Occasional Does the pt have substance abuse?: No - Home Meds and Allergies Allergies/Adverse Reactions: Allergies Allergy/AdvReac Type Severity Reaction Status Date / Time No Known Drug Allergies Allergy Verified 10/20/20 21:23 - Review of Systems Constitutional: Fatigue, Fever, Chills, Malaise Gastrointestinal: Abdominal pain - Vital Signs Heart Rate: 130 Blood Pressure: 129/89 Temperature: 37.9 C Respiratory Rate: 16 O2 Saturation: 100 Weight (kg): 81.647 kg Height: 1.57 m - Physical Exam General Appearance: positive: No acute distress, Alert Eyes Bilatera: positive: Normal inspection, PERRL, EOMI ENT: positive: ENT inspection nml Neck: positive: Nml inspection Respiratory: positive: Chest non-tender, No respiratory distress, Breath sounds nml. negative: Wheezes, Rales, Rhonchi Cardiovascular: positive: Regular rate & rhythm Abdomen: positive: Non-tender. negative: Guarding, Rebound Back: positive: Nml inspection Skin: positive: Color nml Extremities: positive: Non-tender, Full ROM, Nml appearance Neurologic/Psychiatric: positive: Oriented x3, CN's nml (2-12), Motor nml, Sensation nml, Mood/affect nml Comments/Other: Abdominal Exam: Inspection - Erythema none; Scars trocars well healed Auscultation -normoactive bowel sounds Palpation - Hernias none; Fluctuance none; Induration none; Scar N/A - Patient Review Patient Review: Problems were reviewed with the patient during this visit. Medications were reviewed with the patient during this visit. Allergies were reviewed this patient during this visit. Pertinent Tests Reviewed: All pertitent test for this patient were reviewed. - Assessment & Plan Assessment and Plan: POD #15 s/p listed procedue (laparoscopic appendectomy). Readmitted with abdominal pain and concern for hepatic abscess. Final read of CAT scan also worrisome for tubo-ovarian abscess. Discussed with Dr. Godfrey from gynecology who recommended chlamydial coverage with doxycycline. Zosyn should cover hepatic abscess as well as other gynecologic concerns. Patient should be candidate for percutaneous drain versus needle aspiration. Blood cultures have already been drawn. Dr. Hare to follow going forward. (1) GI - IVF. GI ppx. Anticipate ileus. Opiate sparring analgesia. Slowly advance diet. N.p.o. in anticipation of IR drainage in the next several days. (2) SURGERY - consider IR drainage. This will be indicated for both the hepatic as well as the tubo-ovarian abscesses. Broad-spectrum antibiotics. (3) Renal/Lytes - continue IVF. Renal indices within normal limits. (4) Respiratory - O2 as necessary. Continue IS. In spite of recent travel the patient without any concerns for pulmonary embolism or respiratory viral illness with PCR negative as well. (5) Heme - Will continue with DVT ppx. (6) Cardiovascular - HD acceptable. (7) Neuro - Opiate sparring analgesia. Antispasmodics with Robaxin. Toradol. Neuropathic agents. (8) INFECTIOUS DISEASE - Zosyn together with doxycycline. Consider IR drainage.
--- OUTSIDE RECORDS SUMMARY | 2020-10-21 01:05 | EXTERNAL MEDICAL SUMMARY RPT | Continuity of Care Document ---
:1995 Demographics Phone Unavailable Preferred Language Unknown Marital Status Unknown Taoism Affiliation Unknown Race Unknown Ethnic Group Unknown Author Organization [facility] Address [address] [id number] Phone Social History date description facility [phone]
[2020-10-21] MEDS: D5NS W/20 MEQ KCL 1,000 ML IV SCH ×3 (01:26→18:22)
[2020-10-21] MEDS: SODIUM CHLORIDE FLUSH 0.9% 10 ML SYRINGE IVP SCH ×3 (01:26→18:52)
[2020-10-21] MEDS: ACETAMINOPHEN 1,000 MG/100 ML 100 ML IV PRN ×3 (01:38→18:41)
[2020-10-21 05:24] LABS: BASOPHILS # (AUTO) 0.1 10^3/uL (0.0-0.1); BASOPHILS % (AUTO) 0.3 %; EOSINOPHILS % (AUTO) 0.1 %; HCT - HEMATOCRIT 29.5 % (37.0-47.0); HGB - HEMOGLOBIN 9.4 g/dL (12.0-16.0); LYMPHOCYTES # (AUTO) 2.1 10^3/uL (1.5-3.5); LYMPHOCYTES % (AUTO) 14.3 %; MEAN CORPUSCULAR HEMOGLOBIN 23.2 pg (27.0-31.0); MEAN CORPUSCULAR HGB CONC 31.9 g/dL (32.0-36.0); MEAN CORPUSCULAR VOLUME 72.8 fL (81.0-99.0); MEAN PLATELET VOLUME 8.8 fL (7.9-10.8); MONOCYTES # (AUTO) 1.5 10^3/uL (0.0-1.0); MONOCYTES % (AUTO) 10.3 %; NEUTROPHILS % (AUTO) 74.2 %; PLT - PLATELET COUNT 296 10^3/uL (130-450); RED BLOOD COUNT 4.05 10^6/uL (4.20-5.40); RED CELL DISTRIBUTION WIDTH 16.9 % (12.0-15.0); WHITE BLOOD COUNT 14.8 x10^3/uL (4.8-10.8)
[2020-10-21 05:27] LABS: SLIDE REVIEW? Indicated
[2020-10-21 05:39] LABS: ALBUMIN/GLOBULIN RATIO 0.7 (1.0-2.2); BILIRUBIN,TOTAL 0.4 mg/dL (0.2-1.0); CALCIUM 8.2 mg/dL (8.5-10.3); CREATININE 0.7 mg/dL (0.4-1.0); POTASSIUM 3.3 mmol/L (3.5-5.0); TOTAL PROTEIN 7.2 g/dL (6.7-8.2)
[2020-10-21 05:50] LABS: PLATELET ESTIMATE, MANUAL NORMAL (130-450,000) (NORMAL); PLATELET MORPHOLOGY NORMAL APPEARANCE (NORMAL); WBC MORPHOLOGY (MULTIPLE) NORMAL APPEARANCE (NORMAL)
[2020-10-21] MEDS: PANTOPRAZOLE 40 MG VIAL IVP SCH (06:13)
[2020-10-21] MEDS: methocarbamoL 500 MG TABLET PO SCH ×3 (06:13→18:29)
[2020-10-21] MEDS: METOCLOPRAMIDE 10 MG/2 ML VIAL IVP SCH ×3 (06:13→18:29)
[2020-10-21] MEDS: SODIUM CHLORIDE FLUSH 0.9% 10 ML SYRINGE IVP PRN (06:13)
[2020-10-21] MEDS: HYDROmorphone 0.5 MG/0.5 ML SYRINGE IVP PRN (06:30)
--- NOTE | 2020-10-21 07:27 | CT Report ---
PROCEDURE: ANGIO CHEST W/WO INDICATIONS: dyspnea, tachycardic, post-operative fever CONTRAST: IV CONTRAST: Isovue 300 ml: 80 PO CONTRAST: *NO PO CONTRAST TECHNIQUE: After the administration of intravenous contrast, 2 mm thick sections acquired from the pulmonary [facility] [place] to the posterior costophrenic angles. 3-dimensional maximum intensity projection (MIP) coronal a nd sagittal reformats were then acquired through the thorax. For radiation dose reduction, the follow ing was used: automated exposure control, adjustment of mA and/or kV according to patient size. COMPARISON: None FINDINGS: Image quality: Excellent. Pulmonary arteries: Pulmonary arteries are normal in size, and demonstrate no intraluminal filling d efects to suggest central pulmonary embolism. Lungs and pleura: Atelectasis noted in the dependent portions of the lungs. No pleural effusions or p neumothorax. Central and peripheral airways are patent. Mediastinum: Heart size is normal, without pericardial effusion. No mediastinal or hilar adenopathy . Thoracic aorta is normal in caliber and enhancement. Esophagus is normal in caliber, without hiat al hernia. Bones and chest wall: No suspicious bony lesions. Ribs and thoracic spine appear intact throughout. The thyroid is normal. No axillary or supraclavicular adenopathy. Abdomen: Visualized upper abdominal solid organs appear normal in the early arterial phase of enhanc ement. IMPRESSION: 1. No pulmonary embolus. 2. No lung consolidation or pleural effusions. Reviewed by: Jane Remy MD, PhD on 10/21/2020 7:25 AM PDT Approved by: Jane Remy MD, PhD on 10/21/2020 7:25 AM PDT Station ID: [id number]
--- NOTE | 2020-10-21 09:07 | CT Report ---
PROCEDURE: Abdomen/Pelvis W INDICATIONS: Postop fever status post appendectomy CONTRAST: IV CONTRAST: Isovue 300 ml: 80 PO CONTRAST: *NO PO CONTRAST TECHNIQUE: After the administration of intravenous contrast, 5 mm thick sections acquired from the diaphragms to the symphysis. 5 mm thick coronal and sagittal reformats were acquired. For radiation dose reducti on, the following was used: automated exposure control, adjustment of mA and/or kV according to denise ent size. COMPARISON: None. FINDINGS: Image quality: Excellent. ABDOMEN: Lung bases: Lung bases are clear. Heart size is normal. Solid organs: Not present on the prior study, there is a hypoenhancing/hypoattenuating mass in segmen t 7 of the liver measuring 2.3 cm with a mildly irregular border. The liver is otherwise normal in ap pearance. Normal appearance of the spleen, pancreas, gallbladder, adrenal glands, and kidneys. Peritoneum and bowel: Post surgical changes of appendectomy. Small volume fluid and fat stranding ad jacent to the cecum without organized fluid collection. Bowel loops demonstrate normal wall thickness and caliber. No free fluid or air. Nodes and vessels: No retroperitoneal or mesenteric adenopathy by size criteria. Aorta and inferior vena cava are normal in size. Miscellaneous: No ventral hernias. PELVIS: Genitourinary: There is a multiloculated fluid collection adjacent to the left uterine cornua and lef t adnexa. Multiple hypodense regions within this collection are present, each demonstrating periphera l rim enhancement. For example, a collection on series 8 image 64 measures approximately 1.8 cm while another collection immediately posterior to this measures 1.6 cm. More inferiorly there is a hypoden se collection measuring 1.7 cm (series 8 image 66). A cluster of approximately small 1.1-1.6 cm colle ctions as seen on series 8 image 67. These could represent physiologic ovarian/adnexal cysts, althoug h given the history and the fact that they are new since the appendectomy, abscesses are of concern. Bilateral ovarian enlargement is similar to the prior study. A hyperdense nodule adjacent to the left ovary measuring 2.5 cm on series 8 image 70 is unchanged. Miscellaneous: No inguinal hernias or adenopathy. Bones: No suspicious bony lesions. No vertebral body compression fractures. IMPRESSION: Post surgical changes of appendectomy. Irregular hypoattenuating mass in segment 7 of the liver measuring 2.3 cm, not present on the prior s tudy and suspicious for abscess in the context of postoperative fever. Hypoattenuating and peripherally enhancing masses in both adnexa, left greater than right, new from t he prior study. These are favored to represent bilateral tubo-ovarian abscesses in the clinical evgeny xt of postoperative fever. Changes to the preliminary report were discussed with Dr. Rodas at 9:00 AM on 10/21/2020. Reviewed by: Greyson Gallo MD on 10/21/2020 9:06 AM PDT Approved by: Greyson Gallo MD on 10/21/2020 9:06 AM PDT Station ID: [id number]
--- NOTE | 2020-10-21 09:14 | ED Physician Documentation ---
ED Addendum - Addendum Addendum: 10/21/20 09:13 I got a call from daytime radiologist Dr. Gallo about a bilateral tubo-ovarian abscess over read on the CT overnight of this patient. On review it looks like she is admitted to gen surg with IV antibiotics. I discussed with Dr. Diaz who will contact [employer].
[2020-10-21] MEDS: PIPERACILLIN/TAZOBACTAM 3.375 GM in SODIUM CHLORIDE 0.9% MINIBAG 100 ML IV SCH ×2 (09:46→16:59)
[2020-10-21] MEDS: DOCUSATE SODIUM 100 MG CAPSULE PO SCH ×2 (09:46→21:53)
[2020-10-21] MEDS: polyethylene glycoL 3350 17 GM PACKET PO SCH ×2 (09:47→21:53)
--- NOTE | 2020-10-21 12:09 | PHARMACY PROGRESS NOTE ---
- Best Possible Medication History Admit Date and Time: 10/21/20 0042 Processed by: Pharmacy Medication History completed: Yes Patient Interview: Completed Secondary Source(s): Physician records, Pharmacy records, Insurance records (PATIENT INTERVIEWED BY PHARMACY. PATIENT ABLE TO CONFIRM HOME MEDICATIONS ) As the person ultimately responsible for medication therapy, providers are able to order a medication from an existing home medication list in [facility] via the "Reconcile Routine" prior to Confirmation of that medication by director of operations support. Such practice is discouraged except when the physician, in their clinical judgment, deems that a medical need exists for a medication without regard to previous use.
[2020-10-21] MEDS: DOXYCYCLINE 100 MG TABLET PO SCH ×2 (14:16→21:50)
[2020-10-21] MEDS ORDERED: POTASSIUM CHLORIDE 20 MEQ/15 ML UDC PO SCH (17:00)
[2020-10-21] MEDS: POTASSIUM CHLOR 10 MEQ/100 ML 10 MEQ/100 ML BAG IV SCH ×3 (17:29→20:22)
--- NOTE | 2020-10-21 17:45 | CONSULTATION NOTE ---
DATE OF SERVICE: 10/21/2020 Physician: Fernando Godfrey MD IDENTIFICATION: The patient is a 25-year-old female. She presented to the ED on 10/20/2020 complaining of abdominal pain. She states the pain is roughly 6/10. This was quite uncomfortable. She had chills and fevers, temperatures up to 102.7. She had normal bowel sounds. The abdomen was soft; however, there is tenderness to touch in the right lower quadrant. She had previously had an appendectomy done on 10/06/2020, at which time the pathology report indeed showed acute appendicitis. She went home. Her postoperative course for the most part was unremarkable. She went to [place] and returned and roughly a day before complained of right lower quadrant pain. During her ER workup, she was noted to have some adnexal masses, the left being larger than the right. The patient denies any history of any STIs or any chlamydial infection; however, she does state she has a family history of mother and aunts who have had fibroid uteri. PAST MEDICAL HISTORY: Positive for hypertension. PAST SURGICAL HISTORY: Hiatal hernia, as well as laparoscopic appendectomy on 10/06/2020. ALLERGIES: NONE KNOWN. CURRENT MEDICATIONS: She is currently on Zosyn. HABITS: The patient denies use of alcohol, tobacco, street or addictive drugs. 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 PHYSICAL EXAMINATION GENERAL: The patient is a well-developed, well-nourished, black female. She is smiling. She is in no acute distress. She states her pain is roughly a 4/10, which is improved from her admission. VITAL SIGNS: At this point show her temperature initially was 38.2, and now it is 36.5. She does have a rapid heartbeat of 127, blood pressure is 137/80, respirations are 18 on room air. HEENT: Pupils equal, round. Extraocular muscles intact. Thyroid is not palpably enlarged. HEART: Regular rate and rhythm without murmurs. LUNGS: Lung guajardo are clear without rales or wheezes. BACK: There is no spinal or CVA tenderness noted. ABDOMEN: Shows evidence of good bowel sounds. There is a well-healing subumbilical scar from previous laparoscopic appendectomy. The abdomen is showing tenderness in the right lower quadrant with no evidence of rebound at this time. PELVIC: Normal external genitalia. Internal examination revealed no cervical motion tenderness. The cervix was nontender. The left adnexa nontender; however, the right adnexa was tender, particularly transabdominally, as well as transvaginally. Cultures for GC and chlamydia were taken. LABORATORY DATA: CBC on admission showed a white count of 19.0, hemoglobin was 10.9, hematocrit of 33, platelets were 135, repeat CBC this morning on 10/21/2020 showed a white count, which had fallen to 14.8, hemoglobin, which has also dropped to 9.4. She is currently on her period. Her platelet count was 296. The patient had a C-reactive protein, which was noted to be 33, upper limits of normal are 1. The patient had an ultrasound ordered, at which time there was evidence of probable 3 fibroids. Radiology has not read this yet. There is also the left adnexa that was felt to be roughly 5.5 cm, the right 4.6 maximal diameter. IMPRESSION: A 25-year-old female with fever, status post appendectomy, possible perihepatic abscess. Possible tubo-ovarian abscess in the pelvis. She also appears to possibly also have fibroids and with a strong family history, this would not be unusual. The possibility of tubo-ovarian abscess should certainly be entertained in this patient. Because of her age and fertility, we are reticent to do any surgery at this time and will treat her initially with antibiotics. She is currently receiving Zosyn. For chlamydial coverage, she has been added doxycycline 100 mg. We will observe and follow with ultrasound to see if the possible abscesses decrease in size and her symptoms regress. As long as she is improving and not getting worse, the goal will be to treat with IV antibiotics. Tubo-ovarian abscesses of greater than 9 cm have a higher frequency of rupture, while less than 7 cm also appear to have a lower incidence of rupture. This can range in 9 cm up to 10-20%. We will continue to follow the patient throughout her stay here. Thank you very much for the referral of this patient. TD: 10/21/2020 17:44 HIRA
--- NOTE | 2020-10-21 18:16 | Ultrasound Report ---
PROCEDURE: Pelvic w/Transvaginal INDICATIONS: Status post appendectomy. Adnexal findings on comparison CT. TECHNIQUE: Real-time scanning was performed of the pelvic organs, with image documentation. Additional endovagi nal scanning was necessary due to incomplete visualization of the adnexal and endometrial structures by transabdominal scanning. COMPARISON: CT dated 10/20/2020 FINDINGS: No pathologic free abdominal or pelvic fluid. Uterus: Uterus is normal in size at 11.1 x 4.3 x 6.2 cm. The endometrium measures 8 mm in combined thickness. Multiple uterine fibroids including right posterior intramural fibroid measuring 2.9 x 2.5 x 3.3 cm, right anterior subserosal fibroid measuring 1.9 x 1.5 x 1.7 cm, right anterior subserosal fibroid measuring 1.7 x 1.6 x 1.4 cm Ovaries: Neither ovary is well seen sonographically. As depicted on the recent CT from yesterday, there are ill-defined heterogeneous solid and cystic structures in both adnexal regions. There is bia ewhat tubular appearance on ultrasound although technically indeterminate and difficult to characteri ze sonographically IMPRESSION: Ill-defined heterogeneous adnexal cystic and ill-defined solid masses seen bilaterally, with tubular appearance seen on some images. Findings are again concerning for tubo-ovarian abscesses/pelvic infla mmatory disease. Of note, the ovaries are not well visualized sonographically. Uterine fibroids. Reviewed by: Rosalio Durant MD on 10/21/2020 6:15 PM PDT Approved by: Rosalio Durant MD on 10/21/2020 6:15 PM PDT Station ID: [id number]
[2020-10-21] MEDS ORDERED: MIN OIL/DIMETHICON/COCONUT OIL 92 GM TUBE TOP PRN (18:55)
[2020-10-21] MEDS: HEPARIN 5,000 UNIT/ML VIAL SUBQ SCH (21:51)
[2020-10-21 22:26] LABS: CHLAMYDIA TRACHOMATIS DNA NEGATIVE (NEGATIVE); NEISSERIA GONORRHOEAE DNA NEGATIVE (NEGATIVE); TRICHOMONAS VAGINALIS DNA NEGATIVE (NEGATIVE)
[2020-10-22] MEDS: METOCLOPRAMIDE 10 MG/2 ML VIAL IVP SCH ×5 (00:25→18:15)
[2020-10-22] MEDS: methocarbamoL 500 MG TABLET PO SCH ×4 (00:26→18:00)
[2020-10-22] MEDS: PIPERACILLIN/TAZOBACTAM 3.375 GM in SODIUM CHLORIDE 0.9% MINIBAG 100 ML IV SCH ×3 (00:27→17:09)
[2020-10-22] MEDS: SODIUM CHLORIDE FLUSH 0.9% 10 ML SYRINGE IVP SCH ×3 (01:22→16:37)
[2020-10-22] MEDS: ACETAMINOPHEN 1,000 MG/100 ML 100 ML IV PRN ×3 (02:12→17:56)
[2020-10-22] MEDS: D5NS W/20 MEQ KCL 1,000 ML IV SCH ×3 (02:14→21:28)
[2020-10-22 05:35] LABS: BASOPHILS # (AUTO) 0.1 10^3/uL (0.0-0.1); BASOPHILS % (AUTO) 0.3 %; EOSINOPHILS % (AUTO) 0.1 %; HCT - HEMATOCRIT 26.2 % (37.0-47.0); HGB - HEMOGLOBIN 8.3 g/dL (12.0-16.0); LYMPHOCYTES # (AUTO) 2.1 10^3/uL (1.5-3.5); LYMPHOCYTES % (AUTO) 14.4 %; MEAN CORPUSCULAR HEMOGLOBIN 22.8 pg (27.0-31.0); MEAN CORPUSCULAR HGB CONC 31.7 g/dL (32.0-36.0); MEAN PLATELET VOLUME 8.6 fL (7.9-10.8); MONOCYTES # (AUTO) 1.3 10^3/uL (0.0-1.0); MONOCYTES % (AUTO) 8.5 %; NEUTROPHILS # (AUTO) 11.2 10^3/uL (1.5-6.6); PLT - PLATELET COUNT 267 10^3/uL (130-450); RED BLOOD COUNT 3.64 10^6/uL (4.20-5.40); RED CELL DISTRIBUTION WIDTH 16.9 % (12.0-15.0); WHITE BLOOD COUNT 14.8 x10^3/uL (4.8-10.8)
[2020-10-22 05:54] LABS: ALBUMIN 2.8 g/dL (3.2-5.5); ALBUMIN/GLOBULIN RATIO 0.7 (1.0-2.2); ALKALINE PHOSPHATASE 94 IU/L (42-121); ALT ALANINE AMINOTRANSFERASE 25 IU/L (10-60); AST ASPARTATE AMINOTRANSFERASE 21 IU/L (10-42); BILIRUBIN,TOTAL 0.4 mg/dL (0.2-1.0); BUN - BLOOD UREA NITROGEN < 5 mg/dL (6-20); CALCIUM 7.9 mg/dL (8.5-10.3); CARBON DIOXIDE - CO2 22 mmol/L (21-32); CHLORIDE 104 mmol/L (101-111); CREATININE 0.6 mg/dL (0.4-1.0); GFR - MDRD 148 (>89); GLUCOSE 136 mg/dL (70-100); MAGNESIUM 1.9 mg/dL (1.7-2.8); PHOSPHORUS 2.6 mg/dL (2.5-4.6); POTASSIUM 3.8 mmol/L (3.5-5.0); SODIUM 136 mmol/L (135-145); TOTAL PROTEIN 6.7 g/dL (6.7-8.2)
[2020-10-22] MEDS: SODIUM CHLORIDE FLUSH 0.9% 10 ML SYRINGE IVP PRN ×2 (06:19→13:02)
[2020-10-22] MEDS: PANTOPRAZOLE 40 MG VIAL IVP SCH (06:19)
[2020-10-22] MEDS: HEPARIN 5,000 UNIT/ML VIAL SUBQ SCH ×2 (09:23→21:13)
[2020-10-22] MEDS: ONDANSETRON 4 MG/2 ML VIAL IVP PRN ×2 (09:31→16:36)
[2020-10-22] MEDS: DOXYCYCLINE 100 MG TABLET PO SCH ×2 (09:36→21:12)
[2020-10-22] MEDS: DOCUSATE SODIUM 100 MG CAPSULE PO SCH ×2 (09:36→21:12)
[2020-10-22] MEDS: polyethylene glycoL 3350 17 GM PACKET PO SCH ×2 (09:36→21:13)
[2020-10-22] MEDS ORDERED: IRON DEXTRAN 1,500 MG in SODIUM CHLORIDE 0.9% 500 ML IV ONE (09:38)
--- NOTE | 2020-10-22 10:00 | PROVIDER PROGRESS NOTE ---
Subjective - Prog Note Date Prog Note Date: 10/22/20 Prog Note Time: 09:57 - Subjective Pt reports feeling: Improved (Pain now is 0/10. She C/O Diarrhea. Hunger.) Current Medications - Current Medications Current Medications: Zosyn/Doxycycline Objective - Vital Signs/Intake & Output Reviewed Vital Signs: Yes Vital Signs: Vital Signs x48h Temp Pulse BP 10/22/20 07:57 36.7 C 94 133/83 H Intake & Output: Intake & Output 10/19/20 10/20/20 10/21/20 10/22/20 23:59 23:59 23:59 23:59 Intake Total 1000 2896.667 1303.333 Balance 1000 2896.667 1303.333 - Objective General Appearance: positive: No acute distress, Alert Respiratory: positive: Chest non-tender, No respiratory distress, Breath sounds nml Cardiovascular: positive: Regular rate & rhythm, No murmur, No gallop Abdomen: positive: Nml bowel sounds, Tenderness (vaguelower abdominal. marked improvement from yesterday.). negative: No organomegaly, Guarding, Rebound, Mass Back: negative: CVA tenderness (R), CVA tenderness (L) Extremities: negative: Calf tenderness, Jama's sign/cords Neurologic/Psychiatric: positive: Oriented x3 - Lab Results Fish Bones: 10/22/20 05:23 10/22/20 05:23 Other Labs: Lab Results x24hrs 10/22/20 10/22/20 10/21/20 Range/Units 05:23 05:23 17:50 WBC 14.8 H (4.8-10.8) x10^3/uL RBC 3.64 L (4.20-5.40) 10^6/uL Hgb 8.3 L (12.0-16.0) g/dL Hct 26.2 L (37.0-47.0) % MCV 72.0 L (81.0-99.0) fL MCH 22.8 L (27.0-31.0) pg MCHC 31.7 L (32.0-36.0) g/dL RDW 16.9 H (12.0-15.0) % Plt Count 267 (130-450) 10^3/uL MPV 8.6 (7.9-10.8) fL Neut # (Auto) 11.2 H (1.5-6.6) 10^3/uL Lymph # (Auto) 2.1 (1.5-3.5) 10^3/uL [place] # (Auto) 1.3 H (0.0-1.0) 10^3/uL Eos # (Auto) 0.0 (0.0-0.7) 10^3/uL Baso # (Auto) 0.1 (0.0-0.1) 10^3/uL Absolute Nucleated RBC 0.00 x10^3/uL Nucleated RBC % 0.0 /100WBC ESR (0-20) mm/Hr Sodium 136 (135-145) mmol/L Potassium 3.8 (3.5-5.0) mmol/L Chloride 104 (101-111) mmol/L Carbon Dioxide 22 (21-32) mmol/L Anion Gap 10.0 (6-13) BUN < 5 L (6-20) mg/dL Creatinine 0.6 (0.4-1.0) mg/dL Estimated GFR (MDRD) 148 (>89) Glucose 136 H (70-100) mg/dL Calcium 7.9 L (8.5-10.3) mg/dL Phosphorus 2.6 (2.5-4.6) mg/dL Magnesium 1.9 (1.7-2.8) mg/dL Total Bilirubin 0.4 (0.2-1.0) mg/dL AST 21 (10-42) IU/L ALT 25 (10-60) IU/L Alkaline Phosphatase 94 (42-121) IU/L C-Reactive Protein (0-1.0) mg/dL Total Protein 6.7 (6.7-8.2) g/dL Albumin 2.8 L (3.2-5.5) g/dL Globulin 3.9 (2.1-4.2) g/dL Albumin/Globulin Ratio 0.7 L (1.0-2.2) Stl C. diff Tox B Gene NEGATIVE (NEGATIVE) Chlam trachomat DNA PCR (NEGATIVE) N.gonorrhoeae DNA (PCR) (NEGATIVE) T. vaginalis (PCR) (NEGATIVE) 10/21/20 10/21/20 10/21/20 Range/Units 17:22 17:22 16:13 WBC (4.8-10.8) x10^3/uL RBC (4.20-5.40) 10^6/uL Hgb (12.0-16.0) g/dL Hct (37.0-47.0) % MCV (81.0-99.0) fL MCH (27.0-31.0) pg MCHC (32.0-36.0) g/dL RDW (12.0-15.0) % Plt Count (130-450) 10^3/uL MPV (7.9-10.8) fL Neut # (Auto) (1.5-6.6) 10^3/uL Lymph # (Auto) (1.5-3.5) 10^3/uL [place] # (Auto) (0.0-1.0) 10^3/uL Eos # (Auto) (0.0-0.7) 10^3/uL Baso # (Auto) (0.0-0.1) 10^3/uL Absolute Nucleated RBC x10^3/uL Nucleated RBC % /100WBC ESR (0-20) mm/Hr Sodium (135-145) mmol/L Potassium (3.5-5.0) mmol/L Chloride (101-111) mmol/L Carbon Dioxide (21-32) mmol/L Anion Gap (6-13) BUN (6-20) mg/dL Creatinine (0.4-1.0) mg/dL Estimated GFR (MDRD) (>89) Glucose (70-100) mg/dL Calcium (8.5-10.3) mg/dL Phosphorus 2.2 L (2.5-4.6) mg/dL Magnesium 1.9 (1.7-2.8) mg/dL Total Bilirubin (0.2-1.0) mg/dL AST (10-42) IU/L ALT (10-60) IU/L Alkaline Phosphatase (42-121) IU/L C-Reactive Protein (0-1.0) mg/dL Total Protein (6.7-8.2) g/dL Albumin (3.2-5.5) g/dL Globulin (2.1-4.2) g/dL Albumin/Globulin Ratio (1.0-2.2) Stl C. diff Tox B Gene (NEGATIVE) Chlam trachomat DNA PCR NEGATIVE (NEGATIVE) N.gonorrhoeae DNA (PCR) NEGATIVE (NEGATIVE) T. vaginalis (PCR) NEGATIVE (NEGATIVE) 10/21/20 10/21/20 Range/Units 14:20 14:20 WBC (4.8-10.8) x10^3/uL RBC (4.20-5.40) 10^6/uL Hgb (12.0-16.0) g/dL Hct (37.0-47.0) % MCV (81.0-99.0) fL MCH (27.0-31.0) pg MCHC (32.0-36.0) g/dL RDW (12.0-15.0) % Plt Count (130-450) 10^3/uL MPV (7.9-10.8) fL Neut # (Auto) (1.5-6.6) 10^3/uL Lymph # (Auto) (1.5-3.5) 10^3/uL [place] # (Auto) (0.0-1.0) 10^3/uL Eos # (Auto) (0.0-0.7) 10^3/uL Baso # (Auto) (0.0-0.1) 10^3/uL Absolute Nucleated RBC x10^3/uL Nucleated RBC % /100WBC ESR > 140 H (0-20) mm/Hr Sodium (135-145) mmol/L Potassium (3.5-5.0) mmol/L Chloride (101-111) mmol/L Carbon Dioxide (21-32) mmol/L Anion Gap (6-13) BUN (6-20) mg/dL Creatinine (0.4-1.0) mg/dL Estimated GFR (MDRD) (>89) Glucose (70-100) mg/dL Calcium (8.5-10.3) mg/dL Phosphorus (2.5-4.6) mg/dL Magnesium (1.7-2.8) mg/dL Total Bilirubin (0.2-1.0) mg/dL AST (10-42) IU/L ALT (10-60) IU/L Alkaline Phosphatase (42-121) IU/L C-Reactive Protein 33.9 H (0-1.0) mg/dL Total Protein (6.7-8.2) g/dL Albumin (3.2-5.5) g/dL Globulin (2.1-4.2) g/dL Albumin/Globulin Ratio (1.0-2.2) Stl C. diff Tox B Gene (NEGATIVE) Chlam trachomat DNA PCR (NEGATIVE) N.gonorrhoeae DNA (PCR) (NEGATIVE) T. vaginalis (PCR) (NEGATIVE) ABX Reporting Has patient been on IV antibiotics over the past 48 hours?: Yes Assessment/Plan - Problem List (1) TOA (tubo-ovarian abscess) Impression: Pt is symptomatic improving with Antibiotic therapy. Current recommendation for TOA is for Unysin with doxy however Zosyn is also recomended. Since she was started on Zosyn and symptomatic she is improving will continue. Progressing anemia. Hx of menorrhagia Start oral Iron. will swich to Iv if possible Lucocytosis. fallen to 14K but stable repeat CBC in the AM Diarrhea Start probiotic.
[2020-10-22] MEDS ORDERED: FERRIC GLUCONATE 125 MG in SODIUM CHLORIDE 0.9% 100ML 100 ML IV ONE ×2 (11:30→15:30)
--- NOTE | 2020-10-22 13:44 | PROVIDER PROGRESS NOTE ---
Subjective - General Admit Date: 10/21/20 Procedure Date: 10/06/20 Post Op Days: 16 Objective - Patient Data Vital Signs: Vital Signs x48h Temp Pulse BP 10/22/20 07:57 36.7 C 94 133/83 H Weight: Weight 10/20/20 10/21/20 10/22/20 23:59 23:59 23:59 Weight (kg) 81.647 kg 81.647 kg Intake & Output: Intake and Output Totals x24h 10/20/20 10/21/20 10/22/20 23:59 23:59 23:59 Intake Total 1000 2896.667 2800.416 Balance 1000 2896.667 2800.416 - Lab Results Lab Results: 10/22/20 05:23 10/22/20 05:23 Other Lab Results: Lab Results x24hrs 10/22/20 10/22/20 10/21/20 Range/Units 05:23 05:23 17:50 WBC 14.8 H (4.8-10.8) x10^3/uL RBC 3.64 L (4.20-5.40) 10^6/uL Hgb 8.3 L (12.0-16.0) g/dL Hct 26.2 L (37.0-47.0) % MCV 72.0 L (81.0-99.0) fL MCH 22.8 L (27.0-31.0) pg MCHC 31.7 L (32.0-36.0) g/dL RDW 16.9 H (12.0-15.0) % Plt Count 267 (130-450) 10^3/uL MPV 8.6 (7.9-10.8) fL Neut # (Auto) 11.2 H (1.5-6.6) 10^3/uL Lymph # (Auto) 2.1 (1.5-3.5) 10^3/uL [place] # (Auto) 1.3 H (0.0-1.0) 10^3/uL Eos # (Auto) 0.0 (0.0-0.7) 10^3/uL Baso # (Auto) 0.1 (0.0-0.1) 10^3/uL Absolute Nucleated RBC 0.00 x10^3/uL Nucleated RBC % 0.0 /100WBC ESR (0-20) mm/Hr Sodium 136 (135-145) mmol/L Potassium 3.8 (3.5-5.0) mmol/L Chloride 104 (101-111) mmol/L Carbon Dioxide 22 (21-32) mmol/L Anion Gap 10.0 (6-13) BUN < 5 L (6-20) mg/dL Creatinine 0.6 (0.4-1.0) mg/dL Estimated GFR (MDRD) 148 (>89) Glucose 136 H (70-100) mg/dL Calcium 7.9 L (8.5-10.3) mg/dL Phosphorus 2.6 (2.5-4.6) mg/dL Magnesium 1.9 (1.7-2.8) mg/dL Total Bilirubin 0.4 (0.2-1.0) mg/dL AST 21 (10-42) IU/L ALT 25 (10-60) IU/L Alkaline Phosphatase 94 (42-121) IU/L C-Reactive Protein (0-1.0) mg/dL Total Protein 6.7 (6.7-8.2) g/dL Albumin 2.8 L (3.2-5.5) g/dL Globulin 3.9 (2.1-4.2) g/dL Albumin/Globulin Ratio 0.7 L (1.0-2.2) Stl C. diff Tox B Gene NEGATIVE (NEGATIVE) Chlam trachomat DNA PCR (NEGATIVE) N.gonorrhoeae DNA (PCR) (NEGATIVE) T. vaginalis (PCR) (NEGATIVE) 10/21/20 10/21/20 10/21/20 Range/Units 17:22 17:22 16:13 WBC (4.8-10.8) x10^3/uL RBC (4.20-5.40) 10^6/uL Hgb (12.0-16.0) g/dL Hct (37.0-47.0) % MCV (81.0-99.0) fL MCH (27.0-31.0) pg MCHC (32.0-36.0) g/dL RDW (12.0-15.0) % Plt Count (130-450) 10^3/uL MPV (7.9-10.8) fL Neut # (Auto) (1.5-6.6) 10^3/uL Lymph # (Auto) (1.5-3.5) 10^3/uL [place] # (Auto) (0.0-1.0) 10^3/uL Eos # (Auto) (0.0-0.7) 10^3/uL Baso # (Auto) (0.0-0.1) 10^3/uL Absolute Nucleated RBC x10^3/uL Nucleated RBC % /100WBC ESR (0-20) mm/Hr Sodium (135-145) mmol/L Potassium (3.5-5.0) mmol/L Chloride (101-111) mmol/L Carbon Dioxide (21-32) mmol/L Anion Gap (6-13) BUN (6-20) mg/dL Creatinine (0.4-1.0) mg/dL Estimated GFR (MDRD) (>89) Glucose (70-100) mg/dL Calcium (8.5-10.3) mg/dL Phosphorus 2.2 L (2.5-4.6) mg/dL Magnesium 1.9 (1.7-2.8) mg/dL Total Bilirubin (0.2-1.0) mg/dL AST (10-42) IU/L ALT (10-60) IU/L Alkaline Phosphatase (42-121) IU/L C-Reactive Protein (0-1.0) mg/dL Total Protein (6.7-8.2) g/dL Albumin (3.2-5.5) g/dL Globulin (2.1-4.2) g/dL Albumin/Globulin Ratio (1.0-2.2) Stl C. diff Tox B Gene (NEGATIVE) Chlam trachomat DNA PCR NEGATIVE (NEGATIVE) N.gonorrhoeae DNA (PCR) NEGATIVE (NEGATIVE) T. vaginalis (PCR) NEGATIVE (NEGATIVE) 10/21/20 10/21/20 Range/Units 14:20 14:20 WBC (4.8-10.8) x10^3/uL RBC (4.20-5.40) 10^6/uL Hgb (12.0-16.0) g/dL Hct (37.0-47.0) % MCV (81.0-99.0) fL MCH (27.0-31.0) pg MCHC (32.0-36.0) g/dL RDW (12.0-15.0) % Plt Count (130-450) 10^3/uL MPV (7.9-10.8) fL Neut # (Auto) (1.5-6.6) 10^3/uL Lymph # (Auto) (1.5-3.5) 10^3/uL [place] # (Auto) (0.0-1.0) 10^3/uL Eos # (Auto) (0.0-0.7) 10^3/uL Baso # (Auto) (0.0-0.1) 10^3/uL Absolute Nucleated RBC x10^3/uL Nucleated RBC % /100WBC ESR > 140 H (0-20) mm/Hr Sodium (135-145) mmol/L Potassium (3.5-5.0) mmol/L Chloride (101-111) mmol/L Carbon Dioxide (21-32) mmol/L Anion Gap (6-13) BUN (6-20) mg/dL Creatinine (0.4-1.0) mg/dL Estimated GFR (MDRD) (>89) Glucose (70-100) mg/dL Calcium (8.5-10.3) mg/dL Phosphorus (2.5-4.6) mg/dL Magnesium (1.7-2.8) mg/dL Total Bilirubin (0.2-1.0) mg/dL AST (10-42) IU/L ALT (10-60) IU/L Alkaline Phosphatase (42-121) IU/L C-Reactive Protein 33.9 H (0-1.0) mg/dL Total Protein (6.7-8.2) g/dL Albumin (3.2-5.5) g/dL Globulin (2.1-4.2) g/dL Albumin/Globulin Ratio (1.0-2.2) Stl C. diff Tox B Gene (NEGATIVE) Chlam trachomat DNA PCR (NEGATIVE) N.gonorrhoeae DNA (PCR) (NEGATIVE) T. vaginalis (PCR) (NEGATIVE) - Current Medications Current Medications: Current Medications Generic Name Dose Route Start Last Admin Trade Name Freq PRN Reason Stop Dose Admin Docusate Sodium 100 mg 10/21/20 09:00 10/22/20 09:36 Docusate Sodium 100 Mg Capsule PO Not Given BID ELOY Doxycycline Hyclate 100 mg 10/21/20 14:00 10/22/20 09:36 Doxycycline 100 Mg Tablet PO 100 mg BID ELOY Administration Heparin Sodium (Porcine) 5,000 unit 10/21/20 21:00 10/22/20 09:23 Heparin 5,000 Unit/Ml Vial SUBQ 5,000 unit BID ELOY Administration Hydromorphone HCl 0.5 mg 10/21/20 00:42 10/21/20 06:30 Hydromorphone 0.5 Mg/0.5 Ml Syringe IVP 0.5 mg Q2H PRN Administration Pain 8 to 10 Potassium Chloride/Dextrose/Sod Cl 1,000 mls @ 125 mls/hr 10/21/20 01:00 10/22/20 13:05 D5ns W/20 Meq Kcl IV 125 mls/hr .Q8H ELOY Infusion Acetaminophen 100 mls @ 400 mls/hr 10/21/20 00:42 10/22/20 10:20 Ofirmev IV Infused Q6HR PRN Infusion PAIN Methocarbamol 500 mg 10/21/20 06:00 10/22/20 12:07 Methocarbamol 500 Mg Tablet PO Not Given Q6HR ELOY Metoclopramide HCl 10 mg 10/21/20 06:00 10/22/20 13:02 Metoclopramide 10 Mg/2 Ml Vial IVP 10 mg Q6HR ELOY Administration Ondansetron HCl 4 mg 10/21/20 00:42 10/22/20 09:31 Ondansetron 4 Mg/2 Ml Vial IVP 4 mg Q6HR PRN Administration Nausea / Vomiting Pantoprazole Sodium 40 mg 10/21/20 07:00 10/22/20 06:19 Pantoprazole 40 Mg Vial IVP 40 mg QDAC ELOY Administration Polyethylene Glycol 17 gm 10/21/20 09:00 10/22/20 09:36 Polyethylene Glycol 3350 17 Gm Packet PO Not Given BID ELOY Sodium Chloride 10 ml 10/21/20 01:00 10/22/20 09:31 Sodium Chloride Flush 0.9% 10 Ml Syringe IVP 10 ml 0100,0900,1700 ELOY Administration Sodium Chloride 10 ml 10/21/20 00:42 10/22/20 13:02 Sodium Chloride Flush 0.9% 10 Ml Syringe IVP 10 ml PRN PRN Administration NEEDED PER PROVIDER ORDERS Impression/Plan - Problem List Problem List: I spoke with Dr. Godfrey this morning. As there is no general surgical issue, he will assume care of this patient. General surgery will sign off for now but we are available if we can be of any assistance.
[2020-10-22] MEDS ORDERED: AMPICILLIN/SULBACTAM 3 GM in SODIUM CHLORIDE 0.9% MINIBAG 100 ML IV SCH (14:00)
[2020-10-22] MEDS: FERROUS SULFATE 325 MG TABLET PO SCH (17:09)
[2020-10-22] MEDS: SACCHAROMYCES BOULARDII 250 MG CAPSULE PO SCH (17:09)
[2020-10-22] MEDS: HYDROmorphone 0.5 MG/0.5 ML SYRINGE IVP PRN (21:24)
[2020-10-23] MEDS: methocarbamoL 500 MG TABLET PO SCH ×4 (00:22→18:06)
[2020-10-23] MEDS: ACETAMINOPHEN 1,000 MG/100 ML 100 ML IV PRN (00:23)
[2020-10-23] MEDS: METOCLOPRAMIDE 10 MG/2 ML VIAL IVP SCH ×4 (00:23→18:05)
[2020-10-23] MEDS: PIPERACILLIN/TAZOBACTAM 3.375 GM in SODIUM CHLORIDE 0.9% MINIBAG 100 ML IV SCH ×3 (00:31→15:51)
[2020-10-23] MEDS: SODIUM CHLORIDE FLUSH 0.9% 10 ML SYRINGE IVP SCH ×3 (01:36→16:08)
[2020-10-23 05:33] LABS: BASOPHILS % (AUTO) 0.2 %; EOSINOPHILS % (AUTO) 0.1 %; HCT - HEMATOCRIT 26.2 % (37.0-47.0); HGB - HEMOGLOBIN 8.6 g/dL (12.0-16.0); LYMPHOCYTES % (AUTO) 15.2 %; MEAN CORPUSCULAR HEMOGLOBIN 23.6 pg (27.0-31.0); MEAN CORPUSCULAR HGB CONC 32.8 g/dL (32.0-36.0); MEAN PLATELET VOLUME 9.3 fL (7.9-10.8); MONOCYTES % (AUTO) 9.1 %; NEUTROPHILS % (AUTO) 74.6 %; PLT - PLATELET COUNT 315 10^3/uL (130-450); RED BLOOD COUNT 3.64 10^6/uL (4.20-5.40); WHITE BLOOD COUNT 17.3 x10^3/uL (4.8-10.8)
[2020-10-23 05:40] LABS: ABNORMAL LYMPHS % (MANUAL) 0 %; BAND NEUTROPHILS % (MANUAL) 0 %
[2020-10-23 05:59] LABS: LYMPHOCYTES # (MANUAL) 3.5 10^3/uL (1.5-3.5); LYMPHOCYTES % (MANUAL) 20 %; MONOCYTES # (MANUAL) 0.7 10^3/uL (0.0-1.0); NEUTROPHILS # (MANUAL) 13.1 10^3/uL (1.5-6.6)
[2020-10-23 06:00] LABS: DIFFERENTIAL COMMENT MANUAL DIFFERENTIAL; PLATELET ESTIMATE, MANUAL NORMAL (130-450,000) (NORMAL); PLATELET MORPHOLOGY NORMAL APPEARANCE (NORMAL); RBC MORPHOLOGY (MULTIPLE) 1+ HYPOCHROMASIA (NORMAL); WBC MORPHOLOGY (MULTIPLE) NORMAL APPEARANCE (NORMAL)
[2020-10-23] MEDS: D5NS W/20 MEQ KCL 1,000 ML IV SCH ×3 (06:10→20:52)
[2020-10-23 06:13] LABS: ALBUMIN 2.8 g/dL (3.2-5.5); ALBUMIN/GLOBULIN RATIO 0.6 (1.0-2.2); ALKALINE PHOSPHATASE 112 IU/L (42-121); ALT ALANINE AMINOTRANSFERASE 28 IU/L (10-60); AST ASPARTATE AMINOTRANSFERASE 21 IU/L (10-42); BILIRUBIN,TOTAL 0.4 mg/dL (0.2-1.0); BUN - BLOOD UREA NITROGEN < 5 mg/dL (6-20); CALCIUM 8.2 mg/dL (8.5-10.3); CARBON DIOXIDE - CO2 24 mmol/L (21-32); CHLORIDE 104 mmol/L (101-111); CREATININE 0.6 mg/dL (0.4-1.0); GFR - MDRD 148 (>89); GLUCOSE 112 mg/dL (70-100); MAGNESIUM 1.8 mg/dL (1.7-2.8); PHOSPHORUS 2.5 mg/dL (2.5-4.6); POTASSIUM 3.7 mmol/L (3.5-5.0); SODIUM 137 mmol/L (135-145); TOTAL PROTEIN 7.2 g/dL (6.7-8.2)
[2020-10-23] MEDS: PANTOPRAZOLE 40 MG VIAL IVP SCH (06:14)
[2020-10-23] MEDS: SACCHAROMYCES BOULARDII 250 MG CAPSULE PO SCH ×2 (07:40→16:53)
[2020-10-23] MEDS: FERROUS SULFATE 325 MG TABLET PO SCH ×2 (07:40→16:53)
[2020-10-23] MEDS: DOCUSATE SODIUM 100 MG CAPSULE PO SCH ×2 (08:47→21:33)
[2020-10-23] MEDS: DOXYCYCLINE 100 MG TABLET PO SCH ×2 (08:47→21:20)
[2020-10-23] MEDS: HEPARIN 5,000 UNIT/ML VIAL SUBQ SCH ×2 (08:48→21:20)
[2020-10-23] MEDS: HYDROmorphone 0.5 MG/0.5 ML SYRINGE IVP PRN ×2 (08:55→17:16)
[2020-10-23] MEDS: polyethylene glycoL 3350 17 GM PACKET PO SCH ×2 (08:56→21:33)
--- NOTE | 2020-10-23 10:02 | PROVIDER PROGRESS NOTE ---
Subjective - Prog Note Date Prog Note Date: 10/23/20 Prog Note Time: 09:59 - Subjective Pt reports feeling: Improved (Pt notes Pain 0/10, moving bowels, voiding.) Objective - Vital Signs/Intake & Output Reviewed Vital Signs: Yes Vital Signs: Vital Signs x48h Temp Pulse Resp BP Pulse Ox 10/23/20 07:14 37 C 119 H 20 134/83 H 97 Intake & Output: Intake & Output 10/20/20 10/21/20 10/22/20 10/23/20 23:59 23:59 23:59 23:59 Intake Total 1000 2896.667 4560.416 1320.000 Balance 1000 2896.667 4560.416 1320.000 - Objective General Appearance: positive: No acute distress, Alert Respiratory: positive: Chest non-tender, No respiratory distress Cardiovascular: positive: Regular rate & rhythm, No murmur Back: negative: CVA tenderness (R), CVA tenderness (L) Extremities: negative: Calf tenderness, Jama's sign/cords Comments/Other: Pelvic uterus is nontender, adnexa enlarged nontender. No CMT. - Lab Results Fish Bones: 10/23/20 05:00 10/23/20 05:00 Other Labs: Lab Results x24hrs 10/23/20 10/23/20 Range/Units 05:00 05:00 WBC 17.3 H (4.8-10.8) x10^3/uL RBC 3.64 L (4.20-5.40) 10^6/uL Hgb 8.6 L (12.0-16.0) g/dL Hct 26.2 L (37.0-47.0) % MCV 72.0 L (81.0-99.0) fL MCH 23.6 L (27.0-31.0) pg MCHC 32.8 (32.0-36.0) g/dL RDW 17.0 H (12.0-15.0) % Plt Count 315 (130-450) 10^3/uL MPV 9.3 (7.9-10.8) fL Neut # (Auto) Not Reportable Lymph # (Auto) Not Reportable [place] # (Auto) Not Reportable Eos # (Auto) Not Reportable Baso # (Auto) Not Reportable Absolute Nucleated RBC Not Reportable Total Counted 100 Band Neuts % (Manual) 0 (0 - 10) % Abnorm Lymph % (Manual) 0 % Nucleated RBC % Not Reportable Neutrophils # (Manual) 13.1 H (1.5-6.6) 10^3/uL Lymphocytes # (Manual) 3.5 (1.5-3.5) 10^3/uL Monocytes # (Manual) 0.7 (0.0-1.0) 10^3/uL Eosinophils # (Manual) 0.0 (0-0.7) 10^3/uL Basophils # (Manual) 0.0 (0-0.1) 10^3/uL Differential Comment MANUAL DIFFERENTIAL WBC Morphology NORMAL APPEARANCE (NORMAL) Platelet Estimate NORMAL (130-450,000) (NORMAL) Platelet Morphology NORMAL APPEARANCE (NORMAL) RBC Morph Micro Appear 1+ HYPOCHROMASIA (NORMAL) Sodium 137 (135-145) mmol/L Potassium 3.7 (3.5-5.0) mmol/L Chloride 104 (101-111) mmol/L Carbon Dioxide 24 (21-32) mmol/L Anion Gap 9.0 (6-13) BUN < 5 L (6-20) mg/dL Creatinine 0.6 (0.4-1.0) mg/dL Estimated GFR (MDRD) 148 (>89) Glucose 112 H (70-100) mg/dL Calcium 8.2 L (8.5-10.3) mg/dL Phosphorus 2.5 (2.5-4.6) mg/dL Magnesium 1.8 (1.7-2.8) mg/dL Total Bilirubin 0.4 (0.2-1.0) mg/dL AST 21 (10-42) IU/L ALT 28 (10-60) IU/L Alkaline Phosphatase 112 (42-121) IU/L Total Protein 7.2 (6.7-8.2) g/dL Albumin 2.8 L (3.2-5.5) g/dL Globulin 4.4 H (2.1-4.2) g/dL Albumin/Globulin Ratio 0.6 L (1.0-2.2) ABX Reporting Has patient been on IV antibiotics over the past 48 hours?: Yes Assessment/Plan - Problem List (1) TOA (tubo-ovarian abscess) Impression: Symptomatic improvement, pelvis nontender. Afebrile, White count rebounded to 17,000 Reviewed with pharmacy continue antibiotics consider change tomorrow Ultrasound tomorrow AM
[2020-10-23] MEDS: ONDANSETRON 4 MG/2 ML VIAL IVP PRN (17:05)
[2020-10-23] MEDS: IBUPROFEN 600 MG TABLET PO SCH (18:06)
[2020-10-24] MEDS: SODIUM CHLORIDE FLUSH 0.9% 10 ML SYRINGE IVP SCH ×3 (00:03→17:09)
[2020-10-24] MEDS: METOCLOPRAMIDE 10 MG/2 ML VIAL IVP SCH ×4 (00:03→17:50)
[2020-10-24] MEDS: IBUPROFEN 600 MG TABLET PO SCH ×4 (00:03→17:51)
[2020-10-24] MEDS: PIPERACILLIN/TAZOBACTAM 3.375 GM in SODIUM CHLORIDE 0.9% MINIBAG 100 ML IV SCH ×2 (00:10→07:46)
[2020-10-24] MEDS: ONDANSETRON 4 MG/2 ML VIAL IVP PRN (00:10)
[2020-10-24] MEDS: oxyCODONE 5 MG TABLET PO PRN (00:10)
[2020-10-24] MEDS: methocarbamoL 500 MG TABLET PO SCH ×4 (00:11→17:51)
[2020-10-24] MEDS: D5NS W/20 MEQ KCL 1,000 ML IV SCH ×3 (04:29→17:52)
[2020-10-24 05:44] LABS: BASOPHILS % (AUTO) 0.3 %; EOSINOPHILS % (AUTO) 0.2 %; HCT - HEMATOCRIT 26.2 % (37.0-47.0); HGB - HEMOGLOBIN 8.6 g/dL (12.0-16.0); LYMPHOCYTES # (AUTO) 2.7 10^3/uL (1.5-3.5); LYMPHOCYTES % (AUTO) 17.7 %; MEAN CORPUSCULAR HEMOGLOBIN 23.5 pg (27.0-31.0); MEAN CORPUSCULAR HGB CONC 32.8 g/dL (32.0-36.0); MEAN CORPUSCULAR VOLUME 71.6 fL (81.0-99.0); MEAN PLATELET VOLUME 8.4 fL (7.9-10.8); MONOCYTES # (AUTO) 1.2 10^3/uL (0.0-1.0); MONOCYTES % (AUTO) 8.1 %; NEUTROPHILS # (AUTO) 10.9 10^3/uL (1.5-6.6); NEUTROPHILS % (AUTO) 72.2 %; PLT - PLATELET COUNT 306 10^3/uL (130-450); RED BLOOD COUNT 3.66 10^6/uL (4.20-5.40); RED CELL DISTRIBUTION WIDTH 17.1 % (12.0-15.0); WHITE BLOOD COUNT 15.1 x10^3/uL (4.8-10.8)
[2020-10-24] MEDS: PANTOPRAZOLE 40 MG VIAL IVP SCH (05:56)
[2020-10-24 06:07] LABS: ALBUMIN 2.5 g/dL (3.2-5.5); ALBUMIN/GLOBULIN RATIO 0.6 (1.0-2.2); ALKALINE PHOSPHATASE 110 IU/L (42-121); ALT ALANINE AMINOTRANSFERASE 29 IU/L (10-60); AST ASPARTATE AMINOTRANSFERASE 25 IU/L (10-42); BILIRUBIN,TOTAL 0.3 mg/dL (0.2-1.0); BUN - BLOOD UREA NITROGEN < 5 mg/dL (6-20); CALCIUM 8.2 mg/dL (8.5-10.3); CARBON DIOXIDE - CO2 24 mmol/L (21-32); CHLORIDE 105 mmol/L (101-111); CREATININE 0.5 mg/dL (0.4-1.0); GFR - MDRD 182 (>89); GLUCOSE 122 mg/dL (70-100); MAGNESIUM 1.8 mg/dL (1.7-2.8); PHOSPHORUS 2.8 mg/dL (2.5-4.6); POTASSIUM 3.6 mmol/L (3.5-5.0); SODIUM 140 mmol/L (135-145); TOTAL PROTEIN 6.9 g/dL (6.7-8.2)
[2020-10-24] MEDS: ACETAMINOPHEN 500 MG TABLET PO PRN (07:46)
[2020-10-24] MEDS: SACCHAROMYCES BOULARDII 250 MG CAPSULE PO SCH ×2 (07:46→17:09)
[2020-10-24] MEDS: FERROUS SULFATE 325 MG TABLET PO SCH ×2 (07:46→17:09)
[2020-10-24] MEDS: DOCUSATE SODIUM 100 MG CAPSULE PO SCH ×2 (07:49→18:47)
[2020-10-24] MEDS: polyethylene glycoL 3350 17 GM PACKET PO SCH ×2 (07:50→18:47)
[2020-10-24] MEDS: DOXYCYCLINE 100 MG TABLET PO SCH (07:52)
[2020-10-24] MEDS: HEPARIN 5,000 UNIT/ML VIAL SUBQ SCH ×2 (07:52→20:21)
--- NOTE | 2020-10-24 10:05 | PROVIDER PROGRESS NOTE ---
Subjective - Prog Note Date Prog Note Date: 10/24/20 Prog Note Time: 10:03 - Subjective Pt reports feeling: Improved (Pt deric any pain in the pelvis. notes diarrhea) Objective - Vital Signs/Intake & Output Reviewed Vital Signs: Yes Vital Signs: Vital Signs x48h Temp Pulse Resp BP Pulse Ox 10/24/20 07:25 36.9 C 114 H 16 129/71 98 Intake & Output: Intake & Output 10/21/20 10/22/20 10/23/20 10/24/20 23:59 23:59 23:59 23:59 Intake Total 2896.667 4560.416 4057.500 1292.083 Output Total 300 Balance 2896.667 4560.416 3757.500 1292.083 - Objective General Appearance: positive: No acute distress, Alert (dispondant from fears of loosing ovaries) Respiratory: positive: Chest non-tender, No respiratory distress, Breath sounds nml Cardiovascular: positive: Regular rate & rhythm, No murmur, No gallop Abdomen: positive: Non-tender, No organomegaly, Nml bowel sounds. negative: Tenderness, Rebound Extremities: negative: Calf tenderness, Jama's sign/cords - Lab Results Fish Bones: 10/24/20 05:13 10/24/20 05:13 Other Labs: Lab Results x24hrs 10/24/20 10/24/20 Range/Units 05:13 05:13 WBC 15.1 H (4.8-10.8) x10^3/uL RBC 3.66 L (4.20-5.40) 10^6/uL Hgb 8.6 L (12.0-16.0) g/dL Hct 26.2 L (37.0-47.0) % MCV 71.6 L (81.0-99.0) fL MCH 23.5 L (27.0-31.0) pg MCHC 32.8 (32.0-36.0) g/dL RDW 17.1 H (12.0-15.0) % Plt Count 306 (130-450) 10^3/uL MPV 8.4 (7.9-10.8) fL Neut # (Auto) 10.9 H (1.5-6.6) 10^3/uL Lymph # (Auto) 2.7 (1.5-3.5) 10^3/uL [place] # (Auto) 1.2 H (0.0-1.0) 10^3/uL Eos # (Auto) 0.0 (0.0-0.7) 10^3/uL Baso # (Auto) 0.0 (0.0-0.1) 10^3/uL Absolute Nucleated RBC 0.00 x10^3/uL Nucleated RBC % 0.0 /100WBC Sodium 140 (135-145) mmol/L Potassium 3.6 (3.5-5.0) mmol/L Chloride 105 (101-111) mmol/L Carbon Dioxide 24 (21-32) mmol/L Anion Gap 11.0 (6-13) BUN < 5 L (6-20) mg/dL Creatinine 0.5 (0.4-1.0) mg/dL Estimated GFR (MDRD) 182 (>89) Glucose 122 H (70-100) mg/dL Calcium 8.2 L (8.5-10.3) mg/dL Phosphorus 2.8 (2.5-4.6) mg/dL Magnesium 1.8 (1.7-2.8) mg/dL Total Bilirubin 0.3 (0.2-1.0) mg/dL AST 25 (10-42) IU/L ALT 29 (10-60) IU/L Alkaline Phosphatase 110 (42-121) IU/L Total Protein 6.9 (6.7-8.2) g/dL Albumin 2.5 L (3.2-5.5) g/dL Globulin 4.4 H (2.1-4.2) g/dL Albumin/Globulin Ratio 0.6 L (1.0-2.2) Assessment/Plan - Problem List (1) TOA (tubo-ovarian abscess) Impression: Pain total resolved. afebrile WBC still elevated. 3 days on Zosyn Change to Amp/gent/clinda US pending.
[2020-10-24] MEDS: AMPICILLIN 2 GM in SODIUM CHLORIDE 0.9% MINIBAG 100 ML IV SCH ×2 (11:39→17:50)
[2020-10-24] MEDS: CLINDAMYCIN IV 900 MG/50 ML IV SCH ×2 (12:40→21:38)
[2020-10-24] MEDS: GENTAMICIN 440 MG in SODIUM CHLORIDE 0.9% 100ML 100 ML IV SCH (13:59)
[2020-10-24] MEDS: ZOLPIDEM 5 MG TABLET PO PRN (20:21)
[2020-10-25] MEDS: METOCLOPRAMIDE 10 MG/2 ML VIAL IVP SCH ×5 (00:06→23:50)
[2020-10-25] MEDS: AMPICILLIN 2 GM in SODIUM CHLORIDE 0.9% MINIBAG 100 ML IV SCH ×5 (00:06→23:48)
[2020-10-25] MEDS: IBUPROFEN 600 MG TABLET PO SCH ×5 (00:16→23:50)
[2020-10-25] MEDS: methocarbamoL 500 MG TABLET PO SCH ×5 (00:16→23:50)
[2020-10-25] MEDS: ACETAMINOPHEN 500 MG TABLET PO PRN (00:34)
[2020-10-25] MEDS: D5NS W/20 MEQ KCL 1,000 ML IV SCH ×3 (05:33→21:07)
[2020-10-25] MEDS: PANTOPRAZOLE 40 MG VIAL IVP SCH (05:42)
[2020-10-25 05:55] LABS: MAGNESIUM 1.9 mg/dL (1.7-2.8); PHOSPHORUS 3.5 mg/dL (2.5-4.6)
[2020-10-25] MEDS: CLINDAMYCIN IV 900 MG/50 ML IV SCH ×3 (06:22→21:28)
[2020-10-25] MEDS: FERROUS SULFATE 325 MG TABLET PO SCH ×2 (08:11→17:28)
[2020-10-25] MEDS: HEPARIN 5,000 UNIT/ML VIAL SUBQ SCH ×2 (08:11→21:07)
[2020-10-25] MEDS: SACCHAROMYCES BOULARDII 250 MG CAPSULE PO SCH ×2 (08:11→17:28)
[2020-10-25] MEDS: SODIUM CHLORIDE FLUSH 0.9% 10 ML SYRINGE IVP SCH ×3 (08:12→17:28)
--- NOTE | 2020-10-25 08:18 | Ultrasound Report ---
PROCEDURE: Pelvic w/Transvaginal INDICATIONS: TOA TECHNIQUE: Real-time scanning was performed of the pelvic organs, with image documentation. Additional endovagi nal scanning was necessary due to incomplete visualization of the adnexal and endometrial structures by transabdominal scanning. COMPARISON: CT abdomen and pelvis 10/20/2020; pelvic ultrasound 10/21/2020 FINDINGS: These images demonstrate no significant change in appearance of mixed echogenicity cystic and solid/c ellular bilateral adnexal masses. The ovaries are difficult to delineate and visualized within these inflammatory changes. The findings remain consistent with abscesses and the tubular nature of some of the fluid collections again is suggestive of tubo-ovarian abscesses. The uterus is unchanged again with multiple fibroids. Complex echogenic free fluid is similar in volume. IMPRESSION: No significant interval change. Please note that CT of the pelvis with IV contrast would be preferred for comparative purposes in this with clinical scenario. Reviewed by: Greyson Gallo MD on 10/25/2020 8:16 AM PDT Approved by: Greyson Gallo MD on 10/25/2020 8:16 AM PDT Station ID: [id number]
[2020-10-25] MEDS: DOCUSATE SODIUM 100 MG CAPSULE PO SCH ×2 (08:48→21:07)
[2020-10-25] MEDS: polyethylene glycoL 3350 17 GM PACKET PO SCH ×2 (08:49→21:08)
[2020-10-25] MEDS: GENTAMICIN 440 MG in SODIUM CHLORIDE 0.9% 100ML 100 ML IV SCH (13:04)
[2020-10-25 14:18] LABS: BASOPHILS % (AUTO) 0.2 %; EOSINOPHILS % (AUTO) 0.1 %; HCT - HEMATOCRIT 30.6 % (37.0-47.0); HGB - HEMOGLOBIN 10.1 g/dL (12.0-16.0); LYMPHOCYTES % (AUTO) 15.2 %; MEAN CORPUSCULAR HEMOGLOBIN 23.6 pg (27.0-31.0); MEAN CORPUSCULAR VOLUME 71.5 fL (81.0-99.0); MEAN PLATELET VOLUME 8.2 fL (7.9-10.8); MONOCYTES # (AUTO) 1.5 10^3/uL (0.0-1.0); MONOCYTES % (AUTO) 7.5 %; NEUTROPHILS # (AUTO) 14.6 10^3/uL (1.5-6.6); NEUTROPHILS % (AUTO) 75.4 %; PLT - PLATELET COUNT 385 10^3/uL (130-450); RED BLOOD COUNT 4.28 10^6/uL (4.20-5.40); RED CELL DISTRIBUTION WIDTH 17.2 % (12.0-15.0); WHITE BLOOD COUNT 19.4 x10^3/uL (4.8-10.8)
[2020-10-25] MEDS: ONDANSETRON 4 MG/2 ML VIAL IVP PRN (17:43)
--- NOTE | 2020-10-25 18:03 | PROVIDER PROGRESS NOTE ---
Subjective - Prog Note Date Prog Note Date: 10/25/20 Prog Note Time: 18:01 - Subjective Pt reports feeling: Worse (This AM Pt was pain free. having Diarrhea. very much wanted to go home. This after noon at about 1600 develpoed lower abdonimal Pain. 3-10.) Objective - Vital Signs/Intake & Output Reviewed Vital Signs: Yes Vital Signs: Vital Signs x48h Temp Pulse Resp BP Pulse Ox 10/25/20 17:25 36.7 C 106 H 20 138/92 H 99 10/25/20 15:30 37.0 C 111 H 20 139/88 H 100 Intake & Output: Intake & Output 10/22/20 10/23/20 10/24/20 10/25/20 23:59 23:59 23:59 23:59 Intake Total 4560.416 4057.500 3936.833 2134.333 Output Total 300 Balance 4560.416 3757.500 3936.833 2134.333 - Objective General Appearance: positive: No acute distress, Alert Respiratory: positive: Chest non-tender, No respiratory distress, Breath sounds nml Cardiovascular: positive: Regular rate & rhythm, No murmur, No gallop Abdomen: positive: Nml bowel sounds, No distention, Tenderness Back: negative: CVA tenderness (R), CVA tenderness (L) Extremities: negative: Calf tenderness, Jama's sign/cords - Lab Results Fish Bones: 10/25/20 14:12 10/24/20 05:13 Other Labs: Lab Results x24hrs 10/25/20 10/25/20 10/25/20 Range/Units 14:12 14:12 14:12 WBC 19.4 H (4.8-10.8) x10^3/uL RBC 4.28 (4.20-5.40) 10^6/uL Hgb 10.1 L (12.0-16.0) g/dL Hct 30.6 L (37.0-47.0) % MCV 71.5 L (81.0-99.0) fL MCH 23.6 L (27.0-31.0) pg MCHC 33.0 (32.0-36.0) g/dL RDW 17.2 H (12.0-15.0) % Plt Count 385 (130-450) 10^3/uL MPV 8.2 (7.9-10.8) fL Neut # (Auto) 14.6 H (1.5-6.6) 10^3/uL Lymph # (Auto) 3.0 (1.5-3.5) 10^3/uL [place] # (Auto) 1.5 H (0.0-1.0) 10^3/uL Eos # (Auto) 0.0 (0.0-0.7) 10^3/uL Baso # (Auto) 0.0 (0.0-0.1) 10^3/uL Absolute Nucleated RBC 0.00 x10^3/uL Nucleated RBC % 0.0 /100WBC ESR > 140 H (0-20) mm/Hr Phosphorus (2.5-4.6) mg/dL Magnesium (1.7-2.8) mg/dL C-Reactive Protein 22.2 H (0-1.0) mg/dL Random Gentamicin ug/mL 10/25/20 10/24/20 Range/Units 05:31 21:12 WBC (4.8-10.8) x10^3/uL RBC (4.20-5.40) 10^6/uL Hgb (12.0-16.0) g/dL Hct (37.0-47.0) % MCV (81.0-99.0) fL MCH (27.0-31.0) pg MCHC (32.0-36.0) g/dL RDW (12.0-15.0) % Plt Count (130-450) 10^3/uL MPV (7.9-10.8) fL Neut # (Auto) (1.5-6.6) 10^3/uL Lymph # (Auto) (1.5-3.5) 10^3/uL [place] # (Auto) (0.0-1.0) 10^3/uL Eos # (Auto) (0.0-0.7) 10^3/uL Baso # (Auto) (0.0-0.1) 10^3/uL Absolute Nucleated RBC x10^3/uL Nucleated RBC % /100WBC ESR (0-20) mm/Hr Phosphorus 3.5 (2.5-4.6) mg/dL Magnesium 1.9 (1.7-2.8) mg/dL C-Reactive Protein (0-1.0) mg/dL Random Gentamicin 2.4 ug/mL - Diagnostic Imaging Diagnostic Imaging Results: positive: Final report reviewed (no new change in the US. adnexa still enlarged but not growing. fibroids X3 present) Assessment/Plan - Problem List (1) TOA (tubo-ovarian abscess) Impression: WBC 19K Return of pelvic pain. concerns about urpture. Reviewed with Dr Martine Moscoso [employer] at . Repeat CT abdomin and Pelvis W/O contract and oral contrast. Possible laproscopy or laporotomy.
--- NOTE | 2020-10-25 19:44 | PROVIDER PROGRESS NOTE ---
Progress Note Dr. Godfrey, from gynecology to whom the patient is admitted, approached me discussed the patient and her clinical course. In brief this is a 25-year-old female who was approximately 3 weeks postop status post laparoscopic appendectomy for appendicitis who presented with recurrent abdominal pain, leukocytosis, and imaging findings concerning for bilateral tubo-ovarian abscesses and hepatic abscess. The patient was admitted to the hospital started broadly on IV antibiotics. Given discussion with radiology did not appear that these 3 areas were at this time appropriate for percutaneous drainage, we proceeded with expectant management. It appears that the patient had initially improved however today was noted for worsened leukocytosis and abdominal discomfort. The patient remains tachycardic as well. Repeat CAT scan obtained this evening is as follows: 1. Increase in size from hepatic abscess to 4.1 x 2.8 cm from 2.8 x 1.3 cm 2. Ill-defined masslike and possibly tubular structures in both adnexa, left greater than right with peripheral enhancement, and adjacent inflammation. Findings certainly reflect tubo-ovarian abscesses as previous described on the comparison pelvic ultrasounds. On physical exam the patient is in no acute distress. Abdomen is soft, minimally distended, no rebound, no guarding On discussion with Dr. Godfrey and review of the additional imaging together with reevaluation of the patient I would suggest the followin. Consideration for referral to a center that has interventional radiology that could safely address the hepatic lesion that is now larger and is failed to respond to IV antibiotics; this would afford appropriate culture and sensitivity to tailor antibiotics and also determine etiology. 2. I defer to Dr. Godfrey and gynecology for management of the tubo-ovarian abscesses however I simply offer the fact that the patient has had recent surgery within the pelvis and may now also be considered a candidate for interventional radiographic intervention if windows of change since the admission CAT scan. 3. I will discuss this with Dr. Godfrey and we will talk with this patient and decide if collectively this is the best approach going forward. Please note that voice recognition software was used to transcribe this note and inadvertent errors might persist in spite of review and editing. I am obliged to you for your attention. I am thankful to you for allowing me to participate with you in this care of this patient.
[2020-10-25] MEDS ORDERED: IOPAMIDOL-300 100 ML VIAL ONE (20:09)
[2020-10-25] MEDS ORDERED: IOPAMIDOL-300 50 ML VIAL ONE (20:09)
--- NOTE | 2020-10-25 22:01 | CT Report ---
PROCEDURE: ABDOMEN/PELVIS W/WO INDICATIONS: TOA CONTRAST: IV CONTRAST: Isovue 300 ml: 100 PO CONTRAST: Isovue 300 ml50 TECHNIQUE: After the administration of intravenous contrast, 5 mm thick sections acquired from the diaphragms to the symphysis. 5 mm thick coronal and sagittal reformats were acquired. For radiation dose reducti on, the following was used: automated exposure control, adjustment of mA and/or kV according to denise ent size. COMPARISON: Ultrasound dated 10/21/2020 and 10/24/2020. FINDINGS: ABDOMEN: Lung bases: Normal Liver: Ill-defined hypodensity seen in the posterior segment of the liver, measuring 4.1 x 2.8 cm cou ld reflect hepatic abscess, less likely malignancy or metastatic lesion. This has increased in size s johnna 10/20/2020 previously 2.8 x 1.3 cm Gallbladder: Normal Bile ducts: Normal Pancreas: Normal Spleen: Normal Adrenals: Normal. Kidneys: Normal. Stomach: Normal. Bowel: Normal. Other: No free fluid or air. Abdominal nodes: Normal Aorta: Normal. IVC: Normal. Ventral wall: Normal. PELVIS: Bladder: Normal. Ill-defined bilateral adnexal complex and possibly tubular structures are seen in pa rticular on the left demonstrating peripheral enhancement and adjacent inflammatory stranding. Uterus is not well visualized. The findings are compatible with the recent ultrasound appearance. Overall t he left this measures approximately 5.2 x 4.7 cm, and 4.5 x 3.1 cm on the right. Pelvic nodes: Normal. Inguinal: No hernia. Bones: No vertebral body compression fracture. No suspicious bone lesion IMPRESSION: Ill-defined masslike and possibly tubular structures in both adnexa, left greater than right with per ipheral enhancement, and adjacent inflammation. Findings could certainly reflect tubo-ovarian abscess es as previously described on the comparison pelvic ultrasounds. Recommend clinical correlation howev er since the exact nature of these findings are technically indeterminate. Right posterior hepatic hypodense lesion presumably abscess which has increased in size as above. Reviewed by: Rosalio Sepulveda MD on 10/25/2020 10:00 PM PDT Approved by: Rosalio Sepulveda MD on 10/25/2020 10:00 PM PDT Station ID: [id number]
[2020-10-25] MEDS: ZOLPIDEM 5 MG TABLET PO PRN (22:18)
[2020-10-25] MEDS ORDERED: IOPAMIDOL-300 100 ML VIAL IVP ONE (22:18)
[2020-10-25] MEDS ORDERED: IOPAMIDOL-300 50 ML VIAL PO ONE (22:18)
[2020-10-26] MEDS: SODIUM CHLORIDE FLUSH 0.9% 10 ML SYRINGE IVP SCH ×3 (00:11→17:41)
[2020-10-26] MEDS: IBUPROFEN 600 MG TABLET PO SCH ×3 (01:13→18:00)
[2020-10-26] MEDS: methocarbamoL 500 MG TABLET PO SCH ×3 (01:14→18:01)
[2020-10-26] MEDS: D5NS W/20 MEQ KCL 1,000 ML IV SCH ×2 (05:56→09:26)
[2020-10-26] MEDS: AMPICILLIN 2 GM in SODIUM CHLORIDE 0.9% MINIBAG 100 ML IV SCH ×3 (05:57→18:01)
[2020-10-26] MEDS: METOCLOPRAMIDE 10 MG/2 ML VIAL IVP SCH ×3 (06:00→18:00)
[2020-10-26] MEDS: PANTOPRAZOLE 40 MG VIAL IVP SCH (06:00)
[2020-10-26] MEDS: CLINDAMYCIN IV 900 MG/50 ML IV SCH ×2 (06:38→15:28)
--- NOTE | 2020-10-26 07:24 | PROVIDER PROGRESS NOTE ---
Progress Note 10/25/2020 1100 Patient was noted to have increasing size of her tubo-ovarian abscesses on CT . Herpetic abscess also appear to be increasing in size. Her White count also increased to 19,000. After discussion with Dr. Ceballos. It was felt that the best course of action for this patient was to transfer her to the [facility]. I discussed with the TUMBLER TENDER on-call and they agreed that she needed to be transferred. After contacting the transferring service we were told that they were unable to receive her at that time but would possibly be able to receive her this afternoon. I tried also to transfer to [facility] in [facility] as well as [facility]. And would not be able to accept transfer from us either.They were all full at this point we are still trying to affect a transfer. The option to have her hepatic abscess drained at [facility] with surgery for her tubo-ovarian abscesses is a possibility but would prefer sending her to a center with infectious disease interventional radiology as well as TUMBLER TENDER services.
[2020-10-26 07:43] LABS: BASOPHILS % (AUTO) 0.2 %; EOSINOPHILS % (AUTO) 0.1 %; HCT - HEMATOCRIT 28.1 % (37.0-47.0); HGB - HEMOGLOBIN 9.3 g/dL (12.0-16.0); LYMPHOCYTES # (AUTO) 2.3 10^3/uL (1.5-3.5); LYMPHOCYTES % (AUTO) 15.2 %; MEAN CORPUSCULAR HEMOGLOBIN 23.5 pg (27.0-31.0); MEAN CORPUSCULAR HGB CONC 33.1 g/dL (32.0-36.0); MEAN PLATELET VOLUME 8.6 fL (7.9-10.8); MONOCYTES # (AUTO) 1.3 10^3/uL (0.0-1.0); MONOCYTES % (AUTO) 8.7 %; NEUTROPHILS # (AUTO) 11.2 10^3/uL (1.5-6.6); NEUTROPHILS % (AUTO) 74.6 %; PLT - PLATELET COUNT 378 10^3/uL (130-450); RED BLOOD COUNT 3.96 10^6/uL (4.20-5.40); RED CELL DISTRIBUTION WIDTH 17.5 % (12.0-15.0)
[2020-10-26 07:52] LABS: ALBUMIN 2.7 g/dL (3.2-5.5); ALBUMIN/GLOBULIN RATIO 0.5 (1.0-2.2); ALKALINE PHOSPHATASE 118 IU/L (42-121); ALT ALANINE AMINOTRANSFERASE 69 IU/L (10-60); AST ASPARTATE AMINOTRANSFERASE 70 IU/L (10-42); BILIRUBIN,TOTAL 0.4 mg/dL (0.2-1.0); BUN - BLOOD UREA NITROGEN < 5 mg/dL (6-20); CALCIUM 8.9 mg/dL (8.5-10.3); CARBON DIOXIDE - CO2 25 mmol/L (21-32); CHLORIDE 103 mmol/L (101-111); CREATININE 0.7 mg/dL (0.4-1.0); GFR - MDRD 124 (>89); GLUCOSE 113 mg/dL (70-100); POTASSIUM 3.8 mmol/L (3.5-5.0); SODIUM 139 mmol/L (135-145)
[2020-10-26] MEDS: FERROUS SULFATE 325 MG TABLET PO SCH ×2 (09:16→18:01)
[2020-10-26] MEDS: SACCHAROMYCES BOULARDII 250 MG CAPSULE PO SCH ×2 (09:16→18:00)
[2020-10-26] MEDS: DOCUSATE SODIUM 100 MG CAPSULE PO SCH (09:16)
[2020-10-26] MEDS: polyethylene glycoL 3350 17 GM PACKET PO SCH (09:17)
[2020-10-26] MEDS: HEPARIN 5,000 UNIT/ML VIAL SUBQ SCH (09:20)
--- NOTE | 2020-10-26 09:51 | PROVIDER PROGRESS NOTE ---
Subjective - Prog Note Date Prog Note Date: 10/26/20 Prog Note Time: 09:48 - Subjective Pt reports feeling: Improved (Pain now is /10. improved from last PM. diarrhes improving.) Objective - Vital Signs/Intake & Output Reviewed Vital Signs: Yes Vital Signs: Vital Signs x48h Temp Pulse Resp BP Pulse Ox 10/26/20 07:37 37.4 C 118 H 17 110/63 96 Intake & Output: Intake & Output 10/23/20 10/24/20 10/25/20 10/26/20 23:59 23:59 23:59 23:59 Intake Total 4057.500 3936.833 2473.916 1250.0 Output Total 300 Balance 3757.500 3936.833 2473.916 1250.0 - Objective General Appearance: positive: No acute distress, Alert (resting comfortable in bed.) Respiratory: positive: Chest non-tender, No respiratory distress, Breath sounds nml Cardiovascular: positive: Regular rate & rhythm, No murmur, No gallop Abdomen: positive: Nml bowel sounds, No distention, Tenderness (supraspubic with palpaation no rebound) Back: negative: CVA tenderness (R), CVA tenderness (L) Extremities: negative: Calf tenderness, Jama's sign/cords Neurologic/Psychiatric: positive: Oriented x3 - Lab Results Fish Bones: 10/26/20 07:33 10/26/20 07:33 Other Labs: Lab Results x24hrs 10/26/20 10/26/20 10/25/20 Range/Units 07:33 07:33 14:12 WBC 15.0 H (4.8-10.8) x10^3/uL RBC 3.96 L (4.20-5.40) 10^6/uL Hgb 9.3 L (12.0-16.0) g/dL Hct 28.1 L (37.0-47.0) % MCV 71.0 L (81.0-99.0) fL MCH 23.5 L (27.0-31.0) pg MCHC 33.1 (32.0-36.0) g/dL RDW 17.5 H (12.0-15.0) % Plt Count 378 (130-450) 10^3/uL MPV 8.6 (7.9-10.8) fL Neut # (Auto) 11.2 H (1.5-6.6) 10^3/uL Lymph # (Auto) 2.3 (1.5-3.5) 10^3/uL [place] # (Auto) 1.3 H (0.0-1.0) 10^3/uL Eos # (Auto) 0.0 (0.0-0.7) 10^3/uL Baso # (Auto) 0.0 (0.0-0.1) 10^3/uL Absolute Nucleated RBC 0.00 x10^3/uL Nucleated RBC % 0.0 /100WBC ESR (0-20) mm/Hr Sodium 139 (135-145) mmol/L Potassium 3.8 (3.5-5.0) mmol/L Chloride 103 (101-111) mmol/L Carbon Dioxide 25 (21-32) mmol/L Anion Gap 11.0 (6-13) BUN < 5 L (6-20) mg/dL Creatinine 0.7 (0.4-1.0) mg/dL Estimated GFR (MDRD) 124 (>89) Glucose 113 H (70-100) mg/dL Calcium 8.9 (8.5-10.3) mg/dL Total Bilirubin 0.4 (0.2-1.0) mg/dL AST 70 H (10-42) IU/L ALT 69 H (10-60) IU/L Alkaline Phosphatase 118 (42-121) IU/L C-Reactive Protein 22.2 H (0-1.0) mg/dL Total Protein 8.0 (6.7-8.2) g/dL Albumin 2.7 L (3.2-5.5) g/dL Globulin 5.3 H (2.1-4.2) g/dL Albumin/Globulin Ratio 0.5 L (1.0-2.2) 10/25/20 10/25/20 Range/Units 14:12 14:12 WBC 19.4 H (4.8-10.8) x10^3/uL RBC 4.28 (4.20-5.40) 10^6/uL Hgb 10.1 L (12.0-16.0) g/dL Hct 30.6 L (37.0-47.0) % MCV 71.5 L (81.0-99.0) fL MCH 23.6 L (27.0-31.0) pg MCHC 33.0 (32.0-36.0) g/dL RDW 17.2 H (12.0-15.0) % Plt Count 385 (130-450) 10^3/uL MPV 8.2 (7.9-10.8) fL Neut # (Auto) 14.6 H (1.5-6.6) 10^3/uL Lymph # (Auto) 3.0 (1.5-3.5) 10^3/uL [place] # (Auto) 1.5 H (0.0-1.0) 10^3/uL Eos # (Auto) 0.0 (0.0-0.7) 10^3/uL Baso # (Auto) 0.0 (0.0-0.1) 10^3/uL Absolute Nucleated RBC 0.00 x10^3/uL Nucleated RBC % 0.0 /100WBC ESR > 140 H (0-20) mm/Hr Sodium (135-145) mmol/L Potassium (3.5-5.0) mmol/L Chloride (101-111) mmol/L Carbon Dioxide (21-32) mmol/L Anion Gap (6-13) BUN (6-20) mg/dL Creatinine (0.4-1.0) mg/dL Estimated GFR (MDRD) (>89) Glucose (70-100) mg/dL Calcium (8.5-10.3) mg/dL Total Bilirubin (0.2-1.0) mg/dL AST (10-42) IU/L ALT (10-60) IU/L Alkaline Phosphatase (42-121) IU/L C-Reactive Protein (0-1.0) mg/dL Total Protein (6.7-8.2) g/dL Albumin (3.2-5.5) g/dL Globulin (2.1-4.2) g/dL Albumin/Globulin Ratio (1.0-2.2) Assessment/Plan - Problem List (1) TOA (tubo-ovarian abscess) Impression: white count improving to 15,000 CT showes increased size of tuboovarian complex [facility] called this AM and are working toward transfer. (2) Hepatic abscess Impression: Increased in size from admission. may need IR for drainage Transfer to tertiary center.
[2020-10-26] MEDS: SODIUM CHLORIDE FLUSH 0.9% 10 ML SYRINGE IVP PRN ×2 (10:04→11:21)
[2020-10-26] MEDS: ONDANSETRON 4 MG/2 ML VIAL IVP PRN (10:04)
--- NOTE | 2020-10-26 11:24 | DISCHARGE SUMMARY ---
Physician: Fernando Godfrey MD DATE OF ADMISSION: 10/21/2020 DATE OF DISCHARGE: 10/26/2020 ADMITTING DIAGNOSES 1. Status post appendectomy. 2. Hepatic abscess. 3. Possible tubo-ovarian abscess. DISCHARGE DIAGNOSES 1. Status post appendectomy. 2. Hepatic abscess. 3. Tubo-ovarian abscess. PROCEDURES: CAT scan x2, ultrasound, IV antibiotics. PRESENTING HISTORY: Patient is a 25-year-old, G0, P0 female who presents to the ED on 10/20/2020. She complained initially of abdominal pain, stated it was roughly 6/10. She had chills, fevers, temperatures of 100.2. She had a CAT scan performed at that time, which showed evidence of tubo-ovarian complex as well as a left hepatic abscess. She was status post an appendectomy on 10/06/2020, at which time she was noted to have acute appendicitis, pathology proven. Her postop course was unremarkable, in that she went to [facility] and was doing quite well up until her emergency room admission. PAST MEDICAL HISTORY: Positive for some mild hypertension. SURGICAL HISTORY: Positive for hiatal hernia as well as an appendectomy on 10/06/2020. ALLERGIES: NONE KNOWN. MEDICATIONS: She is also noted to be on Zosyn. 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 PHYSICAL EXAMINATION: Her examination on admission showed abdominal tenderness on the right side. There was no cervical motion tenderness. The uterus itself was nontender. The right adnexa also showed tenderness. Cultures for GC and chlamydia were taken at that time. LABORATORIES: CBC on admission showed a white count of 19,000. It fell to 14.8 on the , on the it rebounded to 17,000, fell again to 15,000 on the and , once again, it rebounded to 19.4. This morning her white count has decreased to 15.0. Her platelets throughout this have ranged from 267 to a maximum of 378. Her hemoglobin has decreased, but today is 9.3. Her chemistries, sodium and potassium have remained stable. She has had a C- reactive protein, which was done initially, which was 30 and on the was 22. Blood cultures have all been negative. GC/Ch negative. RADIOLOGY: The patient had a CT performed on admission, which showed adnexal masses. The ovaries were 5.2 cm on the right and 4.4 cm on the left. She also was noted to have fibroids on the uterus. She had what appeared to be a hepatic abscess, which was 2.3 cm in size, which showed up on the CAT scan from the . This is not seen on the CAT scan from 10/06/2020. She had a repeat CAT scan done on the , which showed the ovarian complexes to have increased in size. The left was 5.2 x 4.7 and the right was 4.5 x 3.1. Her hepatic abscess also had increased in size to 4.1 x 2.8 cm. Ultrasound also showed 3 uterine fibroids. HOSPITAL COURSE The patient was admitted, at which time she was started on Zosyn as well as doxycycline for chlamydial coverage. Her chlamydial test came back negative. She did defervesce immediately; however, with following her CBCs they rebounded on the and, for this reason, it was decided to change her to amp/gent/clinda for better coverage. She has noted to have marked improvement on her abdominal exam. In fact, she has denied any pain or tenderness and was requesting to go home. However, in the evening of the , her pain increased to a 6/10. Her CT showed evidence of enlarging ovarian masses as well as tenderness as well as an enlarging left hepatic abscess. When discussing with General Surgery, they felt that Interventional Radiology would be the best way to drain the hepatic abscess. This could not be accomplished at our hospital because of our limited resources. It was decided that transfer to a tertiary center would be in the best interest for the patient where they would have Infectious Disease, Interventional Radiology, LASER CUTTER as well as possibly LASER CUTTER/ONC if the patient needed it for surgery. I have discussed this with the LASER CUTTER head of store operations at the [facility], and they felt that they would accept the patient. There has been some difficulty with bed availability, not only at the [facility] but throughout the entire [place] area. This morning we have received a phone call, and they believe that they should be able to take her this afternoon. Imaging has been sent to the [facility] so that they may view this for additional care. TD: 10/26/2020 11:23 cooper INIGUEZ
[2020-10-26] MEDS: oxyCODONE 5 MG TABLET PO PRN (12:19)
[2020-10-26] MEDS: GENTAMICIN 440 MG in SODIUM CHLORIDE 0.9% 100ML 100 ML IV SCH (14:09)
[2020-10-26] MEDS ORDERED: LOPERAMIDE 2 MG CAPSULE PO PRN (15:29)
[2020-10-26] MEDS: HYDROmorphone 0.5 MG/0.5 ML SYRINGE IVP PRN (15:47)
[2020-10-26 15:55] VITALS: BP 137/85
== END 2020-10-26 17:35 | disposition short-term general hospital (02) | DRG 871 ==
LOC: ED 20:53 → MS2 10-21 00:42
PROVIDERS: ADMIT Surgery; ATTEND Obstetrics & Gynecology
DX: A41.9 Sepsis, unspecified organism (principal); K75.0 Abscess of liver; N70.93 Salpingitis and oophoritis, unspecified; I10 Essential (primary) hypertension; Z90.49 Acquired absence of other specified parts of digestive tract; Z20.822 Contact with and (suspected) exposure to COVID-19; R19.7 Diarrhea, unspecified
CPT/HCPCS: 0202U; 36415; 71275; 74177; 74178; 76830; 76856; 80053; 80170; 81001; 81025; 83605; 83735; 84100; 85025; 85651; 86140; 87040; 87491; 87493; 87591; 87661; 96374; 99284; 99285; A6250; A9270; J0131; J1170; J2765; J2916; Q9967; 87086

== ENCOUNTER 2020-10-26 19:46 | Outpatient (CLI) | payer OTHER | END 2020-10-26 19:47 | disposition short-term general hospital (02) | LOC: EMS 19:46 | PROVIDERS: ATTEND Emergency Medicine | DX: A41.9 Sepsis, unspecified organism (principal); K75.0 Abscess of liver; N70.93 Salpingitis and oophoritis, unspecified | CPT/HCPCS: A0425; A0428 ==